=== PATIENT | male | born 1975 | race Caucasian/White ===

== ENCOUNTER 2021-01-26 14:33 | Emergency (ER) | payer OTHER, SELFPAY ==
[2021-01-26 14:35] VITALS: BP 149/55; PULSE 82; RESP 18; TEMP 36.2; O2SAT 97; BMI 29.0
--- NOTE | 2021-01-26 14:40 | ED_ITS ---
HPI - General Adult General Chief complaint: Upper Respiratory Symptoms Stated complaint: fever, flu like symptoms, kidneys hurt Time Seen by Provider: 01/26/21 14:36 Source: patient Mode of arrival: Ambulatory History of Present Illness HPI narrative: Patient is a 45-year-old male. Is unvaccinated against COVID-19 who is here for evaluation of approximately 24 hours of a fever, flu-like symptoms, flank pain. He states that he actually feels somewhat better today than what he did yesterday. He was waiting to get vaccinated against COVID-19 until all of the variants ?presented themselves ?. Has not taken anything for his symptoms. He states the only reason that he came in today was to get tested for COVID because he had to call off work this morning. Related Data Allergies Allergy/AdvReac Type Severity Reaction Status Date / Time No Known Drug Allergies Allergy Verified 01/26/21 14:51 Review of Systems Constitutional Comments: Fevers yesterday ENT Ears, Nose, Mouth, and Throat: Reports system reviewed and no additional complaints, except as documented Cardiovascular Cardiovascular: Reports system reviewed and no additional complaints, except as documented Respiratory Respiratory: Reports system reviewed and no additional complaints, except as documented Gastrointestinal Gastrointestinal: Denies nausea and Denies vomiting Musculoskeletal Musculoskeletal: Reports myalgias Integumentary/Breasts Skin/Breast: Reports system reviewed and no additional complaints, except as documented Hematologic/Lymphatic On Anticoagulants: No Patient History Medical History Patient denies medical problems Social History Smoking Status: Current every day smoker Exam Initial Vital Signs Initial Vital Signs: Vital Signs Temperature 97.2 F L 01/26/21 14:35 Pulse Rate 82 01/26/21 14:35 Respiratory Rate 18 01/26/21 14:35 Blood Pressure 149/55 H 01/26/21 14:35 Pulse Oximetry 97 01/26/21 14:35 HENMT Head: normal to inspection and normocephalic Resp Effort & Inspection: normal respiratory effort Auscultation: clear to auscultation bilaterally Cardio Rate: regular rate Skin General: no rashes or lesions noted Neuro General: patient alert, patient awake and moves all extremities Extrem General: normal to inspection and capillary refill normal Psych Appearance: grossly normal Course Orders Ordered: ED Orders 01/26/21 14:47 COVID19 -Nasal swab/Pre-Proc Stat Vital Signs Vital signs: Vital Signs - 8 hr 01/26/21 14:35 Temperature 97.2 F L Pulse Rate 82 Respiratory Rate 18 Blood Pressure 149/55 H Pulse Oximetry 97 Medical Decision Making Lab Data Labs: Lab Results 01/26/21 Range/Units 14:47 SARS-CoV-2 (PCR) Positive H (Negative) MDM Narrative Medical decision making narrative: Patient is positive for COVID-19. His vital signs unremarkable. His exam is unremarkable. He is on immunized against COVID-19. I did discuss the findings with him. We did discuss current CDC guidelines with regard to quarantine. He was given return precautions and fol low-up instructions. He expressed understanding agreement. Discharge Plan Departure Patient Disposition: Home Clinical Impression: COVID-19 Instructions: DI for COVID-19 (Suspected or Confirmed ), Can COVID-19 be prevented? Activity Restrictions/Additional Instructions: Your positive for COVID-19. Your now to quarantine yourself for the next 10 days. Be fever free for 24 hours and have improving symptoms. Take Tylenol for any fevers or body aches. Return to the emergency department for any new or worsening symptoms. Stand Alone Forms: Work Release Note
[2021-01-26 15:39] LABS: COVID19 -Nasal RAPID POSITIVE (Negative)
== END 2021-01-26 15:25 | disposition home or self-care (01) ==
PROVIDERS: Emergency Provider Emergency Medicine
DX: U07.1 COVID-19 (principal)
CPT/HCPCS: 87635; 99281; 99282; C9803

== ENCOUNTER 2021-03-13 15:33 | Emergency (ER) | payer OTHER, SELFPAY ==
[2021-03-13 15:39] VITALS: BP 144/78; PULSE 72; RESP 18; TEMP 36.9; O2SAT 99; BMI 29.7
[2021-03-13 16:12] LABS: COVID19 -Nasal RAPID Negative (Negative)
--- NOTE | 2021-03-13 16:19 | DI.RAD.S_ITS ---
PROCEDURE: XR CHEST 1V INDICATIONS: vomiting with chest pain TECHNIQUE: One view of the chest was acquired. COMPARISON: None. FINDINGS: Surgical changes and devices: None. Lungs and pleura: An incomplete inspiratory result is noted, causing a crowded appearance to the lung markings. No focal infiltrates are seen. No pneumothorax or significant pleural effusions are seen. Mediastinum: Mediastinal contours appear normal. Heart size is normal. Bones and chest wall: No suspicious bony lesions. Overlying soft tissues appear unremarkable. IMPRESSION: Limited portable chest examination, without a significant cardiopulmonary abnormality identified. Dictated by: Ti Mosley M.D. on 03/13/2021 at 15:37 Approved by: Ti Mosley M.D. on 03/13/2021 at 15:37
--- NOTE | 2021-03-13 16:19 | ED.NAVMDI ---
HPI - Nausea/Vomiting/Diarrhea General Chief complaint: Nausea/Vomiting/Diarrhea Stated complaint: vomiting since 033, chest feels burned Time Seen by Provider: 03/13/21 16:14 Source: patient Mode of arrival: Ambulatory Limitations: no limitations History of Present Illness HPI Narrative: Patient is a 45-year-old male who is here for evaluation of burning in his chest and upper abdomen. Last evening he started having multiple episodes of vomiting. Continued all night until this morning. He did take some antacids earlier today which helped him somewhat but the symptoms have continued. He is still somewhat nauseous but has not vomited since this morning. No diarrhea. No fevers. No recent travel. No recent antibiotics. No problems breathing. Related Data Previous Rx's Medication Instructions Recorded ondansetron 4 mg disintegrating 4 mg PO Q6H PRN #14 tab 03/13/21 tablet Allergies Allergy/AdvReac Type Severity Reaction Status Date / Time No Known Drug Allergies Allergy Verified 01/26/21 14:51 Review of Systems Constitutional Constitutional: Denies fever(s) Cardiovascular Cardiovascular: Reports as per HPI and Reports system reviewed and no additional complaints, except as documented Respiratory Respiratory: Reports as per HPI and Reports system reviewed and no additional complaints, except as documented Gastrointestinal Gastrointestinal: Reports as per HPI and Reports system reviewed and no additional complaints, except as documented Genitourinary Genitourinary: Reports system reviewed and no additional complaints, except as documented and Reports as per HPI Integumentary/Breasts Skin/Breast: Reports system reviewed and no additional complaints, except as documented Neurologic Neurologic: Reports system reviewed and no additional complaints, except as documented Hematologic/Lymphatic On Anticoagulants: No Patient History Medical History Patient denies medical problems Social History Smoking Status: Current every day smoker Smoking Status: Current every day smoker tobacco type: cigarettes and vaping alcohol intake frequency: holidays/special occasions only Substance Use Type: marijuana Exam Initial Vital Signs Initial Vital Signs: Vital Signs Temperature 98.4 F 03/13/21 15:39 Pulse Rate 72 03/13/21 15:39 Respiratory Rate 18 03/13/21 15:39 Blood Pressure 144/78 H 03/13/21 15:39 Pulse Oximetry 99 03/13/21 15:39 Const General: cooperative, healthy appearing, comfortable and well developed [facility] Head: normal to inspection and normocephalic Chest Chest: normal inspection of the chest Resp Effort & Inspection: normal respiratory effort Auscultation: clear to auscultation bilaterally Cardio Rate: regular rate Rhythm: regular rhythm GI Inspection: non-distended Palpation: soft, No firm and No tender Back/Spine/Pelvis Back: normal to inspection Skin Lesions: no lesions Rashes: no rashes Neuro General: patient alert, patient awake, patient oriented x3 and moves all extremities Extrem General: normal to inspection and capillary refill normal Psych Appearance: grossly normal and well kempt Course Orders Ordered: ED Orders 03/13/21 15:45 COVID19 -Nasal swab/Pre-Proc Stat 03/13/21 16:19 XR chest 1V Stat Discontinued Medications Al Hydrox/Mg Hydrox/Simethicone 20 ml/ Lidocaine HCl 15 ml 0 ml PO NOW ONE Stop: 03/13/21 16:20 Last Admin: 03/13/21 16:29 Dose: 35 ml Documented by: HELADIO Vital Signs Vital signs: Vital Signs - 8 hr 03/13/21 15:39 Temperature 98.4 F Pulse Rate 72 Respiratory Rate 18 Blood Pressure 144/78 H Pulse Oximetry 99 MDM - Nausea/Vomiting/Diarrhea Lab Data Labs: Lab Results 03/13/21 Range/Units 15:45 SARS-CoV-2 (PCR) Negative (Negative) Imaging Data Chest x-ray: Radiologist's Impression: [address] [address] XRay Report Signed Patient: Dayo Torres MR#: [id number] : 1975 Acct:[id number] Age/Sex: 45 / M Date of Service: 03/13/21 Loc: ED Accession Number: [id number] ?? Procedure: XR chest 1V Ordering Provider: Will Cota D.O. PROCEDURE:? XR CHEST 1V ? INDICATIONS:? vomiting with chest pain ? TECHNIQUE:? One view of the chest was acquired.? ? COMPARISON:? None. ? FINDINGS:? ? Surgical changes and devices:? None.? ? Lungs and pleura:? An incomplete inspiratory result is noted, causing a crowded appearance to the lung markings.? No focal infiltrates are seen.? No pneumothorax or significant pleural effusions are seen. ? ? Mediastinum:? Mediastinal contours appear normal.? Heart size is normal.? ? Bones and chest wall:? No suspicious bony lesions.? Overlying soft tissues appear unremarkable.? ? IMPRESSION:? ? Limited portable chest examination, without a significant cardiopulmonary abnormality identified.? ? ? Dictated by: Ti Mosley M.D. on 03/13/2021 at 15:37 ? ? Approved by: Ti Mosley M.D. on 03/13/2021 at 15:37? MDM Narrative Medical decision making narrative: Low suspicion for ACS. Chest x-ray does not show any signs of infiltrates. I suspect that his abdominal discomfort and chest discomfort is esophageal irritation/gastritis/ulceration from his vomiting. He did import some improvement after medications. I did discuss starting on H2 mariaelena. Patient states that he has ulcerations in the past. Plan will be is for him to start on anti-reflux medications for the next couple days. He was given return precautions and follow-up instructions. He expressed understanding and agreement. Discharge Plan Departure Patient Disposition: Home Clinical Impression: Vomiting, Gastroesophageal reflux disease Instructions: DI for Gastroesophageal Reflux Disease (GERD) Activity Restrictions/Additional Instructions: I do recommend that you start on a medicine called Pepcid/famotidine. You can purchase this [id number]. Please start taking it as directed. I do recommend that you take it on a daily basis for the next week and then you can do it as needed afterwards. Also recommend a bland diet. Contact your primary provider for follow-up. Return to the emergency department for new or worsening symptoms Prescriptions: New ondansetron 4 mg tablet,disintegrating 4 mg PO Q6H PRN (Reason: nausea and vomiting) Qty: 14 RF: 0
[2021-03-13] MEDS: MAG HYDROX/ALUMINUM/SIMETH SUS 20 ML, LIDOCAINE VISCOUS 2% 15 ML PO (16:29)
[2021-03-13 17:51] VITALS: BP 123/79; PULSE 54; RESP 17; O2SAT 99
== END 2021-03-13 17:52 | disposition home or self-care (01) ==
PROVIDERS: Emergency Provider Emergency Medicine
DX: K21.9 Gastro-esophageal reflux disease without esophagitis (principal); R11.10 Vomiting, unspecified; Z20.822 Contact with and (suspected) exposure to COVID-19
CPT/HCPCS: 71045; 87635; 99283; C9803

== ENCOUNTER 2021-03-16 13:09 | Emergency (ER) | payer SELFPAY ==
[2021-03-16 14:05] VITALS: BP 132/81; PULSE 54; RESP 18; TEMP 37.1; O2SAT 98; BMI 29.0
--- NOTE | 2021-03-16 15:40 | ED_ITS ---
HPI - Back Pain/Injury <Rojas Muniz PA-C - Last Filed: 03/16/21 18:26> General Chief Complaint: Back Pain/Injury Stated Complaint: Back Issues Time Seen by Provider: 03/16/21 14:59 Source: patient Limitations: no limitations History of Present Illness HPI Narrative: Patient is a 45-year-old male presenting to the emergency department today for an evaluation of back pain that began yesterday. Patient states he has a history of chronic back pain with multiple herniated discs. He states that he was holding his dog on a leash yesterday when the dog aggressively pulled on the leash, causing his body to jerk toward his right side and almost causing him to fall to the ground. He states that he is experienced back pain ever since that point. Of note, he states that he has experienced tingling sensations in his legs bilaterally since the injury but he also notes that he has experienced similar symptoms in the past with exacerbation. Patient denies fever, chills, chest pain, shortness of breath, cough, decreased sensation to light touch in the bilateral lower extremities, urinary incontinence, fecal incontinence. No other concerns voiced at this time. Related Data Previous Rx's Medication Instructions Recorded ondansetron 4 mg disintegrating 4 mg PO Q6H PRN #14 tab 03/13/21 tablet Allergies Allergy/AdvReac Type Severity Reaction Status Date / Time No Known Drug Allergies Allergy Verified 03/16/21 14:05 Review of Systems <Rojas Muniz PA-C - Last Filed: 03/16/21 18:26> Constitutional Constitutional: Denies chills, Denies fever(s), Denies frequent falls, Denies lethargy and Denies weakness ENT Ears, Nose, Mouth, and Throat: Denies dizziness Cardiovascular Cardiovascular: Denies chest pain, Denies irregular heart rhythm, Denies lightheadedness, Denies palpitations, Denies dyspnea, Denies dyspnea on exertion and Denies orthopnea Respiratory Respiratory: Denies cough, Denies dyspnea, Denies dyspnea on exertion and Denies wheezing Gastrointestinal Gastrointestinal: Denies abdominal pain, Denies change in bowel habits, Denies diarrhea, Denies nausea and Denies vomiting Genitourinary Genitourinary: Denies urinary incontinence Musculoskeletal Musculoskeletal: Denies deformity, Denies numbness, Reports tingling (Bilateral lower extremities) and Reports other (Low back pain) Neurologic Neurologic: Denies behavioral changes, Denies confusion, Denies dizziness, Denies frequent falls, Denies numbness, Reports tingling (Bilateral lower extremities) and Denies weakness Psychiatric Psychiatric: Denies behavioral changes and Denies confusion Endocrine Endocrine: Denies palpitations Allergic/Immunologic Allergic/Immunologic: Denies wheezing Patient History <Rojas Muniz PA-C - Last Filed: 03/16/21 18:26> Medical History Patient denies medical problems Social History Smoking Status: Current every day smoker Smoking Status: Current every day smoker tobacco type: cigarettes and vaping alcohol intake frequency: holidays/special occasions only Substance Use Type: marijuana Exam <Rojas Muniz PA-C - Last Filed: 03/16/21 18:26> Narrative Exam Narrative: GENERAL: 45 year old patient appears stated age. Well-developed patient, in no acutedistress. HEAD: Atraumatic. Normocephalic. EYES: Pupils equal round and reactive. Extraocular motions intact. No scleral icterus. No injection or drainage. ENT: Nose without bleeding, purulent drainage. Throat without erythema, tonsillar hypertrophy or exudate. Airway patent. NECK: Trachea midline. Non tender CARDIOVASCULAR: Regular rate and rhythm without murmurs, gallops, or rubs. RESPIRATORY: Clear to auscultation. Breath sounds equal bilaterally. No wheezes, rales, or rhonchi. GASTROINTESTINAL: Abdomen soft, non-tender, nondistended. EXTREMITIES: No edema or joint tenderness. BACK: Mild tenderness to palpation throughout back the area L4-L5. No deformity or crepitance. No flank tenderness. No significant swelling or ecchymosis appreciated. NEURO: AOx3. SKIN: No rash or erythema of visible areas Initial Vital Signs Initial Vital Signs: Vital Signs Temperature 98.7 F 03/16/21 14:05 Pulse Rate 54 L 03/16/21 14:05 Respiratory Rate 18 03/16/21 14:05 Blood Pressure 132/81 03/16/21 14:05 Pulse Oximetry 98 03/16/21 14:05 <Jodi Messer DO - Last Filed: 03/17/21 08:22> Initial Vital Signs Initial Vital Signs: Vital Signs Temperature 98.7 F 03/16/21 14:05 Pulse Rate 54 L 03/16/21 14:05 Respiratory Rate 18 03/16/21 14:05 Blood Pressure 132/81 03/16/21 14:05 Pulse Oximetry 98 03/16/21 14:05 Course <Rojas Muniz PA-C - Last Filed: 03/16/21 18:26> Course Course Narrative: Patient is a 45-year-old male presenting to the emergency department today for an evaluation of back pain that began yesterday. Orders Ordered: Discontinued Medications Ketorolac Tromethamine (Ketorolac 30 Mg/Ml Vial) 30 mg IM NOW ONE Stop: 03/16/21 15:40 Last Admin: 03/16/21 16:13 Dose: 30 mg Documented by: CRISTOFEROR Vital Signs Vital signs: Vital Signs - 8 hr 03/16/21 14:05 Temperature 98.7 F Pulse Rate 54 L Respiratory Rate 18 Blood Pressure 132/81 Pulse Oximetry 98 <Jodi Messer DO - Last Filed: 03/17/21 08:22> Orders Ordered: Discontinued Medications Ketorolac Tromethamine (Ketorolac 30 Mg/Ml Vial) 30 mg IM NOW ONE Stop: 03/16/21 15:40 Last Admin: 03/16/21 16:13 Dose: 30 mg Documented by: ATAANAYOR Vital Signs Vital signs: Vital Signs - 8 hr 03/16/21 14:05 Temperature 98.7 F Pulse Rate 54 L Respiratory Rate 18 Blood Pressure 132/81 Pulse Oximetry 98 MDM - Back Pain/Injury <Rojas Muniz PA-C - Last Filed: 03/16/21 18:26> MDM Narrative Medical decision making narrative: Patient is a 45-year-old male presenting to the emergency department today for an evaluation of back pain that began yesterday. To consider exacerbation of chronic back pain versus cauda equina syndrome. Overall history and physical examination are reassuring. Patient is free saddle anesthesia and does not report any urinary incontinence or fecal incontinence. Additionally, patient states that he is experienced similar symptoms in the past that have improved without clinical intervention. Discussed with the patient the likelihood that this is an exacerbation of his chronic back pain. At this time patient feels comfortable being discharged home. Strict return precautions discussed with patient prior to discharge. Discharge Plan Departure Patient Disposition: Home Clinical Impression: Lumbago Qualifiers: Chronicity: acute Back pain laterality: unspecified Sciatica presence: unspecified whether sciatica present Qualified Code(s): M54.50 - Low back pain, unspecified Instructions: DI for Low Back Pain Activity Restrictions/Additional Instructions: *You have been diagnosed with low back pain *What to do: *Please continue to take your regular medications as directed. [ ] New medication prescriptions sent to your pharmacy: [ ] [ ] New medication written as a paper prescription [X] No new medications given *Please follow up with your primary care provider in 2-3 days, call for an appointment. Let them know you were seen in the Emergency Department and that we ask that you be seen in follow up. We will electronically transmit a record of today's note if your PCP is in our system *If you do not have a primary care provider please contact the [facility] Resource line at [phone]. They will ask some questions about your medical history and help get you set up with a doctor in the community. *Return to Emergency Department if you should have any new, worsening or concerning symptoms, such as fever greater than 101 F, shaking chills, worsening pain, loss of bowel or bladder control, persistent vomiting, or other bothe rsome symptoms. Prescriptions: No Action ondansetron 4 mg tablet,disintegrating 4 mg PO Q6H PRN (Reason: nausea and vomiting) Qty: 14 RF: 0 Stand Alone Forms: Work Release Note <Jodi Messer, - Last Filed: 03/17/21 08:22> [facility] Attestation: I was immediately available in the department for consultation. Documentation has been reviewed. I agree with assessment and plan.
[2021-03-16] MEDS: KETOROLAC 30 MG/ML VIAL IM (16:13)
== END 2021-03-16 16:25 | disposition home or self-care (01) ==
PROVIDERS: Emergency Provider Physician Assistant
DX: M54.50 Low back pain, unspecified (principal)
CPT/HCPCS: 96372; 99283; J1885

== ENCOUNTER 2021-04-22 09:32 | Emergency (ER) | payer OTHER, SELFPAY ==
[2021-04-22 09:39] VITALS: BP 158/92; PULSE 55; RESP 17; TEMP 36.3; O2SAT 100
[2021-04-22 09:52] VITALS: BP 138/77
[2021-04-22 10:00] VITALS: PULSE 63; RESP 22; O2SAT 100
--- NOTE | 2021-04-22 10:06 | PC.NURSE ---
Moving all extremities equally well. denies bowel /bladder dysfunction. pain is worse w/ movement.
--- NOTE | 2021-04-22 10:12 | ED_ITS ---
HPI - Back Pain/Injury General Chief Complaint: Back Pain/Injury Stated Complaint: Right back/head,neck pain Time Seen by Provider: 04/22/21 09:58 Source: patient Mode of arrival: Ambulatory History of Present Illness HPI Narrative: Patient is a 45-year-old male who is here for evaluation of right upper back discomfort that is radiating to shoulder and his right neck in his right ear and to his right chest. Is been going on for the past couple days. No specific incident that caused the symptoms. He has had cervical radiculopathy issues in the past. Has not tried anything for the symptoms prior to arrival. It is worse with palpation and movement Related Data Previous Rx's Medication Instructions Recorded ondansetron 4 mg disintegrating 4 mg PO Q6H PRN #14 tab 03/13/21 tablet cyclobenzaprine 10 mg tablet 10 mg PO TID PRN #14 tab 04/22/21 Allergies Allergy/AdvReac Type Severity Reaction Status Date / Time No Known Drug Allergies Allergy Verified 04/22/21 09:43 Review of Systems ENT Ears, Nose, Mouth, and Throat: Reports system reviewed and no additional complaints, except as documented and Reports as per HPI Cardiovascular Cardiovascular: Reports as per HPI and Reports system reviewed and no additional complaints, except as documented Respiratory Respiratory: Reports as per HPI and Reports system reviewed and no additional complaints, except as documented Gastrointestinal Gastrointestinal: Reports system reviewed and no additional complaints, except as documented Musculoskeletal Musculoskeletal: Reports system reviewed and no additional complaints, except as documented and Reports as per HPI Integumentary/Breasts Skin/Breast: Reports system reviewed and no additional complaints, except as documented Neurologic Neurologic: Reports system reviewed and no additional complaints, except as documented Hematologic/Lymphatic On Anticoagulants: No Patient History Medical History Patient denies medical problems Social History Smoking Status: Current every day smoker Smoking Status: Current every day smoker tobacco type: cigarettes and vaping alcohol intake frequency: holidays/special occasions only Substance Use Type: marijuana Exam Initial Vital Signs Initial Vital Signs: Vital Signs Temperature 97.3 F L 04/22/21 09:39 Pulse Rate 55 L 04/22/21 09:39 Respiratory Rate 17 04/22/21 09:39 Blood Pressure 158/92 H 04/22/21 09:39 Pulse Oximetry 100 04/22/21 09:39 Const General: cooperative, comfortable, well developed and well groomed Limitations: mental status not altered HENCA Head: normal to inspection and normocephalic Resp Effort & Inspection: normal respiratory effort Auscultation: clear to auscultation bilaterally Cardio Rate: regular rate Rhythm: regular rhythm Back/Spine/Pelvis Cervical Spine: cervical muscular tenderness (Right-sided paraspinal/trapezius muscle) and No cervical spinal tenderness Thoracic/Lumbar Spine: No paraspinal tenderness, No thoracic spinal tenderness and No lumbar spinal tenderness Skin General: no rashes or lesions noted Neuro General: patient alert, patient awake, patient oriented x3 and moves all extremities Extrem General: capillary refill normal Other: Patient does have tenderness over the right trapezius muscle with fullness in the right shoulder associated with the muscle. Psych Appearance: grossly normal and well kempt Course Orders Ordered: ED Orders 04/22/21 09:46 EKG-12 Lead Stat Vital Signs Vital signs: Vital Signs - 8 hr 04/22/21 09:39 Temperature 97.3 F L Pulse Rate 55 L Respiratory Rate 17 Blood Pressure 158/92 H Pulse Oximetry 100 MDM - Back Pain/Injury ECG Data Attestation: I personally reviewed and interpreted this ECG as follows: Interpretation: Sinus bradycardia Ventricular rate of 47 Normal axis Normal QRS Normal QTC Sinus arrhythmia No ST T wave changes [facility] Narrative Medical decision making narrative: Patient does have fullness over the right trapezius muscle. His EKG is unremarkable. I do suspect this is musculoskeletal in origin and not cardiac. No indication for radiologic studies. I did discuss this with the patient. We did discuss conservative measures he can tried home. He is given return precautions. He expressed understanding and agreement. Discharge Plan Departure Patient Disposition: Home Clinical Impression: Strain of cervical portion of right trapezius muscle Instructions: DI for Muscle Strain Activity Restrictions/Additional Instructions: I recommend conservative measures such as heat and ice and massage. I also recommend anti-inflammatories such as Motrin or Naprosyn. You can also take Tylenol. Contact your primary doctor for a follow-up. Return to the emergency department for any new or worsening symptoms Prescriptions: New cyclobenzaprine 10 mg tablet 10 mg PO TID PRN (Reason: muscle spasm) Qty: 14 0RF No Action ondansetron 4 mg tablet,disintegrating 4 mg PO Q6H PRN (Reason: nausea and vomiting) Qty: 14 0RF
== END 2021-04-22 10:25 | disposition home or self-care (01) ==
PROVIDERS: Emergency Provider Emergency Medicine
DX: S16.1XXA Strain of muscle, fascia and tendon at neck level, initial encounter (principal); F17.210 Nicotine dependence, cigarettes, uncomplicated; F17.290 Nicotine dependence, other tobacco product, uncomplicated; X58.XXXA Exposure to other specified factors, initial encounter
CPT/HCPCS: 93005; 93010; 99282; 99283

== ENCOUNTER 2021-08-02 17:30 | Emergency (ER) | payer OTHER, SELFPAY ==
[2021-08-02 17:40] VITALS: BP 147/92; PULSE 80; RESP 18; TEMP 36.6; O2SAT 96; BMI 33.0
--- NOTE | 2021-08-02 17:44 | DI.RAD.S_ITS ---
PROCEDURE: XR FOOT RT MIN 3V INDICATIONS: felt a pop painful TECHNIQUE: 3 views of the foot were acquired. COMPARISON: None. FINDINGS: Bones: No acute fractures or dislocations. Corticated fragment adjacent to dorsal aspect of 1st metatarsal head is seen suggestive of old avulsion injury. No suspicious bony lesions. Soft tissues: No tibiotalar joint effusion. Achilles tendon appears normal. IMPRESSION: No gross acute right foot fracture or dislocation. Possible old avulsion injury involving dorsal aspect of 1st metatarsal head. Dictated by: Lex Rush M.D. on 08/02/2021 at 17:56 Approved by: Lex Rush M.D. on 08/02/2021 at 17:57
--- NOTE | 2021-08-02 18:33 | ED_ITS ---
HPI - Extremity Injury (Lower) <FRANCES Rosas - Last Filed: 08/02/21 20:31> General Chief Complaint: Extremity Injury, Lower Stated Complaint: RIGHT FOOT POP HURTS TO PUT WEIGHT ON IT Time Seen by Provider: 08/02/21 18:33 Source: patient Mode of arrival: Ambulatory History of Present Illness HPI Narrative: 46-year-old male presents to the emergency department complaining right dorsum foot pain which started today when he was moving a [place] onions, he states that all of a sudden he felt a pop in the top of his foot, warmth, and sharp pain. He states he is able to bear weight on it although it painful. He denies any history of diabetes, any open wound, he denies any traumatic impact. Range of motion intact, flexion-extension inversion and eversion. Patient denies any sensation changes in his foot. Patient took ibuprofen earlier today states that this was helpful although it is so painful when he bears weight. Patient is wearing slippers at this time. Related Data Previous Rx's Medication Instructions Recorded ondansetron 4 mg disintegrating 4 mg PO Q6H PRN #14 tab 03/13/21 tablet cyclobenzaprine 10 mg tablet 10 mg PO TID PRN #14 tab 04/22/21 acetaminophen 650 mg 650 mg PO Q8H PRN #30 tab 08/02/21 tablet,extended release (Tylenol Arthritis Pain) diclofenac sodium 1 % topical gel 4 g TOPICAL QID PRN #100 g 08/02/21 (Voltaren Arthritis Pain) lidocaine 5 % topical patch 1 patch TOPICAL DAILY PRN #15 ea 08/02/21 (Lidoderm) Allergies Allergy/AdvReac Type Severity Reaction Status Date / Time No Known Drug Allergies Allergy Verified 04/22/21 09:43 Review of Systems <FRANCES Rosas - Last Filed: 08/02/21 20:31> Review of Systems Narrative: General: denies fever, chills, malaise, sweats, fatigue Head/Neck: denies headache, neck pain, dizziness Eyes: denies visual changes, eye pain Cardio: denies chest pain, palpitations, edema Respiratory: denies dyspnea, cough, orthopnea GI: denies abdominal pain, nausea, vomiting, or diarrhea : denies dysuria, hematuria, urinary retention, frequency or incontinence MSK: Complains of right dorsum mid foot pain Skin: denies rash, itching, skin lesions or other Neuro: denies numbness, tingling Patient History <FRANCES Rosas - Last Filed: 08/02/21 20:31> Medical History Patient denies medical problems Social History Smoking Status: Current every day smoker Smoking Status: Current every day smoker tobacco type: cigarettes and vaping alcohol intake frequency: holidays/special occasions only Substance Use Type: marijuana Exam <FRANCES Rosas - Last Filed: 08/02/21 20:31> Narrative Exam Narrative: Independently reviewed vitals signs and nursing notes. General: cooperative, comfortable, in no acute distress, well developed and well groomed Head: atraumatic, symmetrical facial expressions Neck: supple, atraumatic, without lymphadenopathy. Eyes: pupils equal round and reactive, EOMI, conjunctiva normal Nose: nares patent, no rhinorrhea Mouth/Throat: uvula midline, moist mucus membranes MSK: moves all extremities, ambulatory w/steady gait in walking to neurovascularly intact, no weakness, mild edema/ecchymosis on the dorsum of his right midfoot, no erythema, without open wound, no sensation changes, PT and DP pulses are 2+, no proximal 1st or 5th metatarsal pain, no tenderness over medial and lateral malleoli Skin: brisk capillary refill, no rash, no erythema Neuro: normal speech and cognition, A&O x3, normal tone Psych: mental status is grossly normal, congruent mood, normal affect, pleasant and cooperative Initial Vital Signs Initial Vital Signs: Vital Signs Temperature 97.8 F 08/02/21 17:40 Pulse Rate 80 08/02/21 17:40 Respiratory Rate 18 08/02/21 17:40 Blood Pressure 147/92 H 08/02/21 17:40 Pulse Oximetry 96 08/02/21 17:40 Procedures <FRANCES Rosas - Last Filed: 08/02/21 20:31> Orthopedic Splinting/Casting Injury #1: Lower Extremity Immobilizer: post-op shoe Post splinting neuro exam: intact and no change Post splinting vascular exam: no change Placed by: Provider Course <FRANCES Rosas - Last Filed: 08/02/21 20:31> Orders Ordered: ED Orders 08/02/21 17:44 XR foot RT min 3V Stat Vital Signs Vital signs: Vital Signs - 8 hr 08/02/21 17:40 Temperature 97.8 F Pulse Rate 80 Respiratory Rate 18 Blood Pressure 147/92 H Pulse Oximetry 96 MDM - Extremity Injury (Lower) <FRANCES Rosas - Last Filed: 08/02/21 20:31> Imaging Data Extremity x-ray #1: Radiologist's Impression: PROCEDURE:? XR FOOT RT MIN 3V ? INDICATIONS:? felt a pop painful ? TECHNIQUE:? 3 views of the foot were acquired.? ? COMPARISON:? None. ? FINDINGS:? ? Bones:? No acute fractures or dislocations.? Corticated fragment adjacent to dorsal aspect of 1st metatarsal head is seen suggestive of old avulsion injury.? No suspicious bony lesions.? ? Soft tissues:? No tibiotalar joint effusion.? Achilles tendon appears normal.? ? ? IMPRESSION:? No gross acute right foot fracture or dislocation. Possible old avulsion injury involving dorsal aspect of 1st metatarsal head.? ? Dictated by: Lex Rush M.D. on 08/02/2021 at 17:56 ? ? Approved by: Lex Rush M.D. on 08/02/2021 at 17:57 ? [facility] Narrative Medical decision making narrative: 46-year-old male presents to the emergency department with right dorsum midfoot pain which occurred when he was moving a heavy [place] onions into another location, he states he felt a pop on the dorsum of his foot and is painful at that time. Patient denies wanting range of motion changes or limitations, he is able to dorsiflex and extend without deficit, invert and janet his foot without excess pain. He has tenderness to palpation over the dorsum of his midfoot, with mild ecchymosis without any crepitus, axilla erythema. Cap refill less than 2 seconds, PT and DP pulses are 2+. Patient was referred to Podiatry for follow-up if this is not healing as expected. He was given a work note. En couraged ice, rest, he was fitted in a postop shoe, states is feels more comfortable. Patient is appropriate and amenable to discharge home. Vital signs are stable on repeat examination is unremarkable. Patient has been informed of results. Patient has been given strict return to ER precautions for any new or worsening symptoms. Patient understands to follow up closely with outpatient providers as instructed. Patient understands plan and agrees to discharge home. All questions and concerns answered at this time. Discharge Plan Departure Patient Disposition: Home Clinical Impression: Foot sprain Qualifiers: Encounter type: initial encounter Laterality: right Qualified Code(s): S93.601A - Unspecified sprain of right foot, initial encounter Instructions: Ankle Sprain Activity Restrictions/Additional Instructions: *You have been diagnosed with a foot sprain. This is most likely a sprain since there is no acute fracture. These may range from mild to severe depending on how long it takes for to heal. Please elevated as much as possible, try and stay off of it, ice it frequently. Please use this walking shoe, wear a sock with it. He can use a lidocaine patch to help with the pain or Voltaren gel in addition to ibuprofen and Tylenol. If your taking ibuprofen around the clock, please take food and water with it to help prevent your stomach. Thank you for trusting us with your care, very sorry for help busy it is today. If this is not getting any better, please follow-up with Podiatry. *What to do: *Please continue to take your regular medications as directed. [ x] New medication prescriptions sent to your pharmacy: [[facility] ] [ ] New medication written as a paper prescription [ ] No new medications given *Please follow up with your primary care provider in 2-3 days, call for an appointment. Let them know you were seen in the Emergency Department and that we asked that you be seen for follow-up. We will electronically transmit a record of today's note if your PCP is in our system *If you do not have a primary care provider please contact [phone] to establish care with one of the [facility] primary care providers. *Return to Emergency Department if you should have any new, worsening or concerning symptoms, such as [fever greater than 101F, chills, worsening pain, persistent vomiting or other bothersome symptoms] Prescriptions: New lidocaine [Lidoderm] 5 % adhesive patch,medicated 1 patch topical DAILY PRN (Reason: pain) Qty: 15 0RF Rx Instructions: leave on most painful area for up to 12 hrs diclofenac sodium [Voltaren Arthritis Pain] 1 % gel 4 g topical QID PRN (Reason: pain, inflammation) Qty: 100 0RF Rx Instructions: apply to single knee, ankle, foot; for foot includes sole/toes/top of foot acetaminophen [Tylenol Arthritis Pain] 650 mg tablet extended release 650 mg PO Q8H PRN (Reason: pain) Qty: 30 0RF No Action ondansetron 4 mg tablet,disintegrating 4 mg PO Q6H PRN (Reason: nausea and vomiting) Qty: 14 0RF cyclobenzaprine 10 mg tablet 10 mg PO TID PRN (Reason: muscle spasm) Qty: 14 0RF Referrals: Purnima Person DPM [Physician] - 7-10 days Stand Alone Forms: Work Release Note
--- NOTE | 2021-08-02 20:49 | PC.NURSE ---
Assessment done by provider Crew and relayed to me. DC'd without nursing assessment except what was done in triage. She reports swelling to the top of right foot and pain with ambulation.
--- NOTE | 2021-08-02 20:53 | PC.NURSE ---
placed by Provider Crew
== END 2021-08-02 20:15 | disposition home or self-care (01) ==
PROVIDERS: Emergency Provider Nurse Practitioner Critical Care Medicine
DX: S93.601A Unspecified sprain of right foot, initial encounter (principal); X50.0XXA Overexertion from strenuous movement or load, initial encounter
CPT/HCPCS: 29550; 73630; 99281; 99283

== ENCOUNTER 2021-09-19 09:53 | Emergency (ER) | payer OTHER, SELFPAY ==
[2021-09-19 10:03] VITALS: BP 145/78; PULSE 58; RESP 18; TEMP 37.1; O2SAT 100; BMI 33.0
--- NOTE | 2021-09-19 12:51 | ED.SKABFB ---
HPI - Skin/Abscess/Foreign Bdy <Perico Acuna PA-C - Last Filed: 09/19/21 13:01> General Chief complaint: Skin/Abscess/Foreign Body Stated complaint: Thinks ruptured hemorrhoid Time Seen by Provider: 09/19/21 12:42 Source: patient Mode of arrival: Ambulatory Limitations: no limitations History of Present Illness HPI narrative: Patient is a 46-year-old male presents to the ED complaining of pain per rectum. He has a history of hemorrhoids has had frequent issues with having pain and swelling and bleeding associated with. He states that today he had a bowel movement had a large amount of blood that seem to be more than normal and he is having a lot more pain around the rectum. He was concerned and came in for evaluation. He admits to poor diet habits not drinking enough fluids and does not get enough fruits and vegetables. He states he has been having issues with hemorrhoids for the past 20 years. He does states that he does have bowel movements daily sometimes 3 times a day he states that the last couple of days have been diarrhea and consistency. He does not suffer from issues with chronic constipation. No reported fever no reported nausea or vomiting. No reported anal penetration Related Data Previous Rx's Medication Instructions Recorded ondansetron 4 mg disintegrating 4 mg PO Q6H PRN #14 tab 03/13/21 tablet cyclobenzaprine 10 mg tablet 10 mg PO TID PRN #14 tab 04/22/21 acetaminophen 650 mg 650 mg PO Q8H PRN #30 tab 08/02/21 tablet,extended release (Tylenol Arthritis Pain) diclofenac sodium 1 % topical gel 4 g TOPICAL QID PRN #100 g 08/02/21 (Voltaren Arthritis Pain) lidocaine 5 % topical patch 1 patch TOPICAL DAILY PRN #15 ea 08/02/21 (Lidoderm) Allergies Allergy/AdvReac Type Severity Reaction Status Date / Time No Known Drug Allergies Allergy Verified 04/22/21 09:43 Review of Systems <Perico Acuna PA-C - Last Filed: 09/19/21 13:01> Review of Systems ROS Unobtainable: All systems reviewed & are unremarkable except as noted in HPI and below Constitutional Constitutional: Denies chills, Denies fatigue, Denies fever(s), Denies frequent falls, Denies lethargy and Denies weakness Eyes Eyes: Denies change in vision, Denies eye discharge, Denies irritation and Denies loss of vision ENT Ears, Nose, Mouth, and Throat: Denies change in voice, Denies dizziness, Denies neck pain, Denies sore throat and Denies throat swelling Cardiovascular Cardiovascular: Denies chest pain, Denies irregular heart rhythm, Denies lightheadedness, Denies palpitations, Denies dyspnea, Denies dyspnea on exertion and Denies orthopnea Respiratory Respiratory: Denies cough, Denies dyspnea, Denies dyspnea on exertion and Denies wheezing Gastrointestinal Gastrointestinal: Denies abdominal pain, Denies change in bowel habits, Denies diarrhea, Denies nausea and Denies vomiting Genitourinary Genitourinary: Reports as per HPI, Denies hematuria, Denies flank pain, Denies urinary incontinence and Denies urinary urgency Musculoskeletal Musculoskeletal: Denies back pain, Denies muscle weakness, Denies neck pain, Denies numbness and Denies tingling Integumentary/Breasts Skin/Breast: Denies pruritus, Denies erythema, Denies rash and Denies wounds Neurologic Neurologic: Denies behavioral changes, Denies confusion, Denies dizziness, Denies frequent falls, Denies loss of vision, Denies numbness, Denies tingling and Denies weakness Psychiatric Psychiatric: Denies anxiety, Denies behavioral changes, Denies confusion, Denies depression, Denies homicidal ideation and Denies suicidal ideation Endocrine Endocrine: Denies fatigue, Denies flushing and Denies palpitations Hematologic/Lymphatic Hematologic/Lymphatic: Denies easy bruising Allergic/Immunologic Allergic/Immunologic: Denies urticaria, Denies throat swelling and Denies wheezing Patient History <Perico Acuna PA-C - Last Filed: 09/19/21 13:01> Medical History Patient denies medical problems Social History Smoking Status: Current every day smoker Smoking Status: Current every day smoker tobacco type: cigarettes and vaping alcohol intake frequency: holidays/special occasions only Substance Use Type: marijuana Exam <Perico Acuna PA-C - Last Filed: 09/19/21 13:01> Initial Vital Signs Initial Vital Signs: Vital Signs Temperature 98.7 F 09/19/21 10:03 Pulse Rate 58 L 09/19/21 10:03 Respiratory Rate 18 09/19/21 10:03 Blood Pressure 145/78 H 09/19/21 10:03 Pulse Oximetry 100 09/19/21 10:03 Const General: cooperative, healthy appearing, comfortable and well developed Nutritional Appearance: average body habitus GI Inspection: normal to inspection Palpation: soft and no hepatosplenomegaly Rectal Exam: visual inspection normal, normal sphincter tone and hemorrhoids <Jodi Messer DO - Last Filed: 09/19/21 22:22> Initial Vital Signs Initial Vital Signs: Vital Signs Temperature 98.7 F 09/19/21 10:03 Pulse Rate 58 L 09/19/21 10:03 Respiratory Rate 18 09/19/21 10:03 Blood Pressure 145/78 H 09/19/21 10:03 Pulse Oximetry 100 09/19/21 10:03 Course <NIKOLAY Champion Last Filed: 09/19/21 13:01> Vital Signs Vital signs: Vital Signs - 8 hr 09/19/21 10:03 Temperature 98.7 F Pulse Rate 58 L Respiratory Rate 18 Blood Pressure 145/78 H Pulse Oximetry 100 <DO Nestor Plummer Last Filed: 09/19/21 22:22> Vital Signs Vital signs: Vital Signs - 8 hr 09/19/21 10:03 Temperature 98.7 F Pulse Rate 58 L Respiratory Rate 18 Blood Pressure 145/78 H Pulse Oximetry 100 MDM - Skin/Abscess/Foreign Bdy <NIKOLAY Champion Last Filed: 09/19/21 13:01> Differential Diagnosis Differential diagnosis: Likely other [facility] [place] Narrative Medical decision making narrative: Patient was evaluated today for rectal pain. Based on his exam I saw no evidence of any thrombosed hemorrhoid or any abnormalities visualized externally or internally. Did not see any evidence of any blood and patient's vitals were stable. Based on the assessment and the story it is likely that he can treat this outpatient lead. I spoke about increasing his fiber and taking stool softeners and Sitz baths for discomfort as well as [id number] options. He was agreeable and patient was discharged home. Discharge Plan Departure Patient Disposition: Home Clinical Impression: Pain of perianal area Instructions: DI for Rectal Bleeding Activity Restrictions/Additional Instructions: Today you were seen for pain per rectum. As we discussed I would recommend he take a fiber supplement Metamucil [id number] as directed this will help bulk up her bowel movements. I also would recommend a stool softener namely Colace 100 mg twice daily you can buy this [id number]. I would also recommend Sitz baths for any ongoing discomfort and you can also purchase some preparation H OTC as directed for pain and burning. If her symptoms worsen or bleeding continues you can return to the ED for re-evaluation or you can follow-up with your PCP. Thank you for the opportunity to care for you today. Prescriptions: No Action ondansetron 4 mg tablet,disintegrating 4 mg PO Q6H PRN (Reason: nausea and vomiting) Qty: 14 0RF cyclobenzaprine 10 mg tablet 10 mg PO TID PRN (Reason: muscle spasm) Qty: 14 0RF lidocaine [Lidoderm] 5 % adhesive patch,medicated 1 patch topical DAILY PRN (Reason: pain) Qty: 15 0RF Rx Instructions: leave on most painful area for up to 12 hrs diclofenac sodium [Voltaren Arthritis Pain] 1 % gel 4 g topical QID PRN (Reason: pain, inflammation) Qty: 100 0RF Rx Instructions: apply to single knee, ankle, foot; for foot includes sole/toes/top of foot acetaminophen [Tylenol Arthritis Pain] 650 mg tablet extended release 650 mg PO Q8H PRN (Reason: pain) Qty: 30 0RF Stand Alone Forms: Work Release Note <Jodi Messer, - Last Filed: 09/19/21 22:22> Cosign ED Attending Remyature Attestation: I was immediately available in the department for consultation. Documentation has been reviewed. I agree with assessment and plan.
== END 2021-09-19 13:09 | disposition home or self-care (01) ==
PROVIDERS: Emergency Provider Physician Assistant
DX: K62.89 Other specified diseases of anus and rectum (principal); K62.5 Hemorrhage of anus and rectum
CPT/HCPCS: 99281

== ENCOUNTER 2021-10-24 20:31 | Emergency (ER) | payer OTHER, SELFPAY ==
[2021-10-24 20:54] VITALS: BP 145/81; PULSE 66; RESP 16; TEMP 37.4; O2SAT 99; BMI 33.0
[2021-10-24 21:27] LABS: COVID19 -Nasal RAPID POSITIVE (Negative)
--- NOTE | 2021-10-24 22:11 | ED_ITS ---
HPI - General Adult General Chief complaint: Upper Respiratory Symptoms Stated complaint: states flu like symptoms Time Seen by Provider: 10/24/21 22:09 Source: patient Mode of arrival: Ambulatory History of Present Illness HPI narrative: 46-year-old male who is not vaccinated against COVID he states that he started to have upper respiratory symptoms several days ago however over the past 24 hours symptoms have worsened to include fevers. He states that it feels very similar to the last time that he had COVID. Related Data Previous Rx's Medication Instructions Recorded ondansetron 4 mg disintegrating 4 mg PO Q6H PRN nausea and 03/13/21 tablet vomiting #14 tabs cyclobenzaprine 10 mg tablet 10 mg PO TID PRN muscle spasm #14 04/22/21 tabs acetaminophen 650 mg 650 mg PO Q8H PRN pain #30 tabs 08/02/21 tablet,extended release (Tylenol Arthritis Pain) diclofenac sodium 1 % topical gel 4 g topical QID PRN pain, 08/02/21 (Voltaren Arthritis Pain) inflammation #100 grams lidocaine 5 % topical patch 1 patch topical DAILY PRN pain #15 08/02/21 (Lidoderm) ea Allergies Allergy/AdvReac Type Severity Reaction Status Date / Time No Known Drug Allergies Allergy Verified 04/22/21 09:43 Review of Systems Constitutional Constitutional: Reports body ache(s), Reports fatigue, Reports fever(s) and Reports lethargy Respiratory Respiratory: Reports cough Gastrointestinal Gastrointestinal: Reports as per HPI and Reports system reviewed and no additional complaints, except as documented Genitourinary Genitourinary: Reports system reviewed and no additional complaints, except as documented and Reports as per HPI Integumentary/Breasts Skin/Breast: Reports system reviewed and no additional complaints, except as documented Endocrine Endocrine: Reports fatigue Hematologic/Lymphatic On Anticoagulants: No Patient History Medical History Patient denies medical problems Social History Smoking Status: Current every day smoker Smoking Status: Current every day smoker tobacco type: cigarettes and vaping alcohol intake frequency: holidays/special occasions only Substance Use Type: marijuana Exam Initial Vital Signs Initial Vital Signs: Vital Signs Temperature 99.3 F 10/24/21 20:54 Pulse Rate 66 10/24/21 20:54 Respiratory Rate 16 10/24/21 20:54 Blood Pressure 145/81 H 10/24/21 20:54 Pulse Oximetry 99 10/24/21 20:54 Oxygen Delivery Method 10/24/21 20:54 Const General: cooperative and comfortable HENMT Head: normal to inspection and normocephalic Resp Effort & Inspection: normal respiratory effort Auscultation: clear to auscultation bilaterally Cardio Rate: regular rate Rhythm: regular rhythm Skin General: no rashes or lesions noted Neuro General: patient alert, patient awake and moves all extremities Extrem General: normal to inspection and capillary refill normal Course Orders Ordered: ED Orders 10/24/21 21:00 COVID19 -Nasal RAPID/Pre-Proc Stat Vital Signs Vital signs: Vital Signs - 8 hr 10/24/21 20:54 Temperature 99.3 F Pulse Rate 66 Respiratory Rate 16 Blood Pressure 145/81 H Pulse Oximetry 99 Oxygen Delivery Method Room Air Medical Decision Making Lab Data Labs: Lab Results 10/24/21 Range/Units 21:00 SARS-CoV-2 (PCR) Positive H (Negative) MDM Narrative Medical decision making narrative: Patient is COVID positive. This does explain the symptoms that he presents with today. Has clear lung exam. Not hypoxic. Not tachypneic. No indication for antibiotics. Feel that we can hold on a chest x-ray for now given his p resentation. He was given return precautions and follow-up instructions. He expressed understanding and agreement. Discharge Plan Departure Patient Disposition: Home Clinical Impression: COVID-19 Instructions: DI for COVID-19 (Suspected or Confirmed ) Activity Restrictions/Additional Instructions: Recommend that you take Tylenol for any fevers or body aches. Be sure to increase your fluid intake. Follow all CDC guidelines with regard to quarantine. Return to the emergency department for any new or worsening symptoms. Prescriptions: No Action ondansetron 4 mg tablet,disintegrating 4 mg PO Q6H PRN (Reason: nausea and vomiting) Qty: 14 0RF cyclobenzaprine 10 mg tablet 10 mg PO TID PRN (Reason: muscle spasm) Qty: 14 0RF lidocaine [Lidoderm] 5 % adhesive patch,medicated 1 patch topical DAILY PRN (Reason: pain) Qty: 15 0RF Rx Instructions: leave on most painful area for up to 12 hrs diclofenac sodium [Voltaren Arthritis Pain] 1 % gel 4 g topical QID PRN (Reason: pain, inflammation) Qty: 100 0RF Rx Instructions: apply to single knee, ankle, foot; for foot includes sole/toes/top of foot acetaminophen [Tylenol Arthritis Pain] 650 mg tablet extended release 650 mg PO Q8H PRN (Reason: pain) Qty: 30 0RF Stand Alone Forms: Work Release Note Visit Report Forms: Patient Portal/API
== END 2021-10-24 22:16 | disposition home or self-care (01) ==
PROVIDERS: Emergency Provider Emergency Medicine
DX: U07.1 COVID-19 (principal)
CPT/HCPCS: 87635; 99281; 99282; C9803

== ENCOUNTER 2021-10-31 05:48 | Emergency (ER) | payer OTHER, SELFPAY ==
[2021-10-31 05:53] VITALS: BP 119/69; PULSE 70; RESP 20; TEMP 36.5; O2SAT 97
--- NOTE | 2021-10-31 07:25 | DI.RAD.S_ITS ---
PROCEDURE: XR CHEST 1V INDICATIONS: covid pos A WEEK AGO, with sob and chest pain TECHNIQUE: One view of the chest was acquired. COMPARISON: [facility], CR, XR CHEST 1V, 03/13/2021, 16:23. FINDINGS: Surgical changes and devices: None. Lungs and pleura: Lungs are clear. No pleural effusions or pneumothorax. Mediastinum: Mediastinal contours appear normal. Heart size is normal. Bones and chest wall: No suspicious bony lesions. Overlying soft tissues appear unremarkable. IMPRESSION: No acute cardiopulmonary disease. Dictated by: Lynn Doyle M.D. on 10/31/2021 at 8:33 Approved by: Lynn Doyle M.D. on 10/31/2021 at 8:33
--- NOTE | 2021-10-31 07:25 | ED.GENADULT ---
HPI - General Adult General Chief complaint: Upper Respiratory Symptoms Stated complaint: SOB, MUSCLE PAIN Time Seen by Provider: 10/31/21 06:57 Source: patient Mode of arrival: Ambulatory Limitations: no limitations History of Present Illness HPI narrative: 46-year-old male who 1 week ago was seen here in this department by myself and diagnosed with COVID-19. Was discharged home. Since that time he stated that there was a short period of time where he was feeling better but then things seemed to be getting worse. He is having chills and body aches and cough and right-sided chest discomfort with coughing. Is also having fevers. Is also having right-sided back discomfort after a coughing episode this morning. Related Data Previous Rx's Medication Instructions Recorded ondansetron 4 mg disintegrating 4 mg PO Q6H PRN nausea and 03/13/21 tablet vomiting #14 tabs cyclobenzaprine 10 mg tablet 10 mg PO TID PRN muscle spasm #14 04/22/21 tabs acetaminophen 650 mg 650 mg PO Q8H PRN pain #30 tabs 08/02/21 tablet,extended release (Tylenol Arthritis Pain) diclofenac sodium 1 % topical gel 4 g topical QID PRN pain, 08/02/21 (Voltaren Arthritis Pain) inflammation #100 grams lidocaine 5 % topical patch 1 patch topical DAILY PRN pain #15 08/02/21 (Lidoderm) ea Allergies Allergy/AdvReac Type Severity Reaction Status Date / Time No Known Drug Allergies Allergy Verified 04/22/21 09:43 Review of Systems Constitutional Constitutional: Reports system reviewed and no additional complaints, except as documented Cardiovascular Cardiovascular: Reports system reviewed and no additional complaints, except as documented Respiratory Respiratory: Reports system reviewed and no additional complaints, except as documented Gastrointestinal Gastrointestinal: Reports system reviewed and no additional complaints, except as documented Musculoskeletal Musculoskeletal: Reports system reviewed and no additional complaints, except as documented Patient History Medical History Patient denies medical problems Social History Smoking Status: Current every day smoker Smoking Status: Current every day smoker tobacco type: cigarettes and vaping alcohol intake frequency: holidays/special occasions only Substance Use Type: marijuana Exam Initial Vital Signs Initial Vital Signs: Vital Signs Temperature 97.7 F 10/31/21 05:53 Pulse Rate 70 10/31/21 05:53 Respiratory Rate 20 10/31/21 05:53 Blood Pressure 119/69 10/31/21 05:53 Pulse Oximetry 97 10/31/21 05:53 Oxygen Delivery Method 10/31/21 05:53 Const General: cooperative, healthy appearing and comfortable HENMT Head: normal to inspection and normocephalic Resp Effort & Inspection: normal respiratory effort Auscultation: clear to auscultation bilaterally Cardio Rate: regular rate Rhythm: regular rhythm Skin General: no rashes or lesions noted Neuro General: patient alert, patient awake and moves all extremities Extrem General: normal to inspection and capillary refill normal Course Orders Ordered: ED Orders 10/31/21 07:25 XR chest 1V Stat Vital Signs Vital signs: Vital Signs - 8 hr 10/31/21 05:53 10/31/21 07:46 10/31/21 07:47 Temperature 97.7 F Pulse Rate 70 60 60 Respiratory Rate 20 Blood Pressure 119/69 Pulse Oximetry 97 98 96 Oxygen Delivery Method Room Air 10/31/21 07:47 Temperature Pulse Rate Respiratory Rate Blood Pressure 109/62 Pulse Oximetry Oxygen Delivery Method Medical Decision Making Imaging Data Chest x-ray: Radiologist's Impression: [address] [address] XRay Report Signed Patient: Dayo Torres MR#: [id number] : 1975 Acct:[id number] Age/Sex: 46 / M Date of Service: 10/31/21 Loc: ED Accession Number: [id number] ?? Procedure: XR chest 1V Ordering Provider: Will Cota D.O. PROCEDURE:? XR CHEST 1V ? INDICATIONS:? covid pos A WEEK AGO, with sob and chest pain ? TECHNIQUE:? One view of the chest was acquired.? ? [facility]. ? FINDINGS:? ? Surgical changes and devices:? None.? ? Lungs and pleura:? Lungs are clear.? No pleural effusions or pneumothorax.? ? Mediastinum:? Mediastinal contours appear normal.? Heart size is normal.? ? Bones and chest wall:? No suspicious bony lesions.? Overlying soft tissues appear unremarkable.? ? IMPRESSION:? No acute cardiopulmonary disease. ? ? Dictated by: Lynn Doyle M.D. on 10/31/2021 at 8:33 ? ? Approved by: Lynn Doyle M.D. on 10/31/2021 at 8:33?? MDM Narrative Medical decision making narrative: No respiratory distress, hypoxic, not tachypneic. Chest x-ray unremarkable. No indication for antibiotics. He has known COVID-19. We did discuss the importance of continuing to stay hydrated. He was given return precautions. He expressed understanding and agreement. Discharge Plan Departure Patient Disposition: Home Clinical Impression: COVID-19 Instructions: DI for COVID-19 (Suspected or Confirmed ) Activity Restrictions/Additional Instructions: Continue to follow while CDC guidelines with regard to COVID-19 and your symptoms. You should be fever free for 24 hours and the rest of your symptoms improving before you end your quarantine. Contact your primary provider for a follow-up. Prescriptions: No Action ondansetron 4 mg tablet,disintegrating 4 mg PO Q6H PRN (Reason: nausea and vomiting) Qty: 14 0RF cyclobenzaprine 10 mg tablet 10 mg PO TID PRN (Reason: muscle spasm) Qty: 14 0RF lidocaine [Lidoderm] 5 % adhesive patch,medicated 1 patch topical DAILY PRN (Reason: pain) Qty: 15 0RF Rx Instructions: leave on most painful area for up to 12 hrs diclofenac sodium [Voltaren Arthritis Pain] 1 % gel 4 g topical QID PRN (Reason: pain, inflammation) Qty: 100 0RF Rx Instructions: apply to single knee, ankle, foot; for foot includes sole/toes/top of foot acetaminophen [Tylenol Arthritis Pain] 650 mg tablet extended release 650 mg PO Q8H PRN (Reason: pain) Qty: 30 0RF Stand Alone Forms: Work Release Note
[2021-10-31 07:46] VITALS: PULSE 60; O2SAT 98
[2021-10-31 07:47] VITALS: BP 109/62; PULSE 60; O2SAT 96
[2021-10-31 08:00] VITALS: BP 126/66; PULSE 58; O2SAT 95
[2021-10-31 08:30] VITALS: PULSE 49; O2SAT 96
== END 2021-10-31 08:52 | disposition home or self-care (01) ==
PROVIDERS: Emergency Provider Emergency Medicine
DX: U07.1 COVID-19 (principal); R07.9 Chest pain, unspecified
CPT/HCPCS: 71045; 99281; 99283

== ENCOUNTER 2022-05-16 13:56 | Emergency (ER) | payer OTHER, SELFPAY ==
[2022-05-16 14:35] VITALS: BP 140/68; PULSE 57; RESP 14; TEMP 36.7; O2SAT 99; BMI 26.4
--- NOTE | 2022-05-16 16:18 | PC.NURSE ---
Pt states he was walking his dog when he was pulled on the leash which made him twist wrong and he thinks pulled a muscle in his back. Pt states that he already has buldging/slipped discs and this incident has exacerbated him pain. Ambulatory, able to sit and stand with pain. Denies bladder or bowel issues. Has radiation of pain into his R knee.
--- NOTE | 2022-05-16 16:58 | ED.BACK ---
HPI - Back Pain/Injury <NIKOLAY Goddard Last Filed: 05/16/22 18:35> General Chief Complaint: Back Pain/Injury Stated Complaint: lower back injury going to RT leg Time Seen by Provider: 05/16/22 14:17 Source: patient History of Present Illness HPI Narrative: Patient left without being seen Related Data Previous Rx's Medication Instructions Recorded ondansetron 4 mg disintegrating 4 mg PO Q6H PRN nausea and 03/13/21 tablet vomiting #14 tabs cyclobenzaprine 10 mg tablet 10 mg PO TID PRN muscle spasm #14 04/22/21 tabs acetaminophen 650 mg 650 mg PO Q8H PRN pain #30 tabs 08/02/21 tablet,extended release (Tylenol Arthritis Pain) diclofenac sodium 1 % topical gel 4 g topical QID PRN pain, 08/02/21 (Voltaren Arthritis Pain) inflammation #100 grams lidocaine 5 % topical patch 1 patch topical DAILY PRN pain #15 08/02/21 (Lidoderm) ea Allergies Allergy/AdvReac Type Severity Reaction Status Date / Time No Known Drug Allergies Allergy Verified 05/16/22 14:38 Patient History <NIKOLAY Goddard Last Filed: 05/16/22 18:35> Medical History Patient denies medical problems Social History Smoking Status: Current every day smoker Smoking Status: Current every day smoker tobacco type: cigarettes and vaping alcohol intake frequency: holidays/special occasions only Substance Use Type: marijuana Exam <NIKOLAY Goddard Last Filed: 05/16/22 18:35> Initial Vital Signs Initial Vital Signs: Vital Signs Temperature 98.1 F 05/16/22 14:35 Pulse Rate 57 L 05/16/22 14:35 Respiratory Rate 14 05/16/22 14:35 Blood Pressure 140/68 05/16/22 14:35 Pulse Oximetry 99 05/16/22 14:35 Oxygen Delivery Method 05/16/22 14:35 <Jodi Messer DO - Last Filed: 05/17/22 17:50> Initial Vital Signs Initial Vital Signs: Vital Signs Temperature 98.1 F 05/16/22 14:35 Pulse Rate 57 L 05/16/22 14:35 Respiratory Rate 14 05/16/22 14:35 Blood Pressure 140/68 05/16/22 14:35 Pulse Oximetry 99 05/16/22 14:35 Oxygen Delivery Method 05/16/22 14:35 Course <Marina Rosas PA-C - Last Filed: 05/16/22 18:35> Vital Signs Vital signs: Vital Signs - 8 hr 05/16/22 14:35 Temperature 98.1 F Pulse Rate 57 L Respiratory Rate 14 Blood Pressure 140/68 Pulse Oximetry 99 Oxygen Delivery Method Room Air <Jodi Messer DO - Last Filed: 05/17/22 17:50> Vital Signs Vital signs: Vital Signs - 8 hr 05/16/22 14:35 Temperature 98.1 F Pulse Rate 57 L Respiratory Rate 14 Blood Pressure 140/68 Pulse Oximetry 99 Oxygen Delivery Method Room Air Discharge Plan Departure Patient Disposition: Home Clinical Impression: Patient left before evaluation by physician Prescriptions: No Action ondansetron 4 mg tablet,disintegrating 4 mg PO Q6H PRN (Reason: nausea and vomiting) Qty: 14 0RF cyclobenzaprine 10 mg tablet 10 mg PO TID PRN (Reason: muscle spasm) Qty: 14 0RF lidocaine [Lidoderm] 5 % adhesive patch,medicated 1 patch topical DAILY PRN (Reason: pain) Qty: 15 0RF Rx Instructions: leave on most painful area for up to 12 hrs diclofenac sodium [Voltaren Arthritis Pain] 1 % gel 4 g topical QID PRN (Reason: pain, inflammation) Qty: 100 0RF Rx Instructions: apply to single knee, ankle, foot; for foot includes sole/toes/top of foot acetaminophen [Tylenol Arthritis Pain] 650 mg tablet extended release 650 mg PO Q8H PRN (Reason: pain) Qty: 30 0RF Referrals: Miscellaneous,Doctor, MD [Primary Care Provider] - <Jodi Messer DO - Last Filed: 05/17/22 17:50> Cosign ED Attending Cosignature Attestation: [facility]
--- NOTE | 2022-05-16 17:40 | PC.NURSE ---
Pt states kolton been here for 3.5 hrs and all i need is a doctors note to go back to work and now this crying baby is making me have a migraine and im out of here no papers signed. pt ambulated out of ED with steady gait.
== END 2022-05-16 17:42 | disposition left against medical advice (07) ==
PROVIDERS: Emergency Provider Physician Assistant Medical
DX: M54.50 Low back pain, unspecified (principal)
CPT/HCPCS: 99281

== ENCOUNTER 2022-11-28 20:03 | Emergency (ER) | payer OTHER, SELFPAY ==
[2022-11-28 20:10] VITALS: BP 140/81; PULSE 67; RESP 15; TEMP 36.3; O2SAT 99; BMI 29.7
--- NOTE | 2022-11-28 20:16 | DI.RAD.S_ITS ---
PROCEDURE: XR FOOT LT MIN 3V INDICATIONS: foot pain TECHNIQUE: 3 views of the foot were acquired. COMPARISON: [facility], CR, XR FOOT RT MIN 3V, 08/02/2021, 17:35. FINDINGS: Bones: No fractures or dislocations. No suspicious bony lesions. Soft tissues: No tibiotalar joint effusion. Achilles tendon appears normal. IMPRESSION: 1. No fracture or dislocation. Dictated by: Govind Arevalo M.D. on 11/28/2022 at 21:04 Approved by: Govind Arevalo M.D. on 11/28/2022 at 21:15
--- NOTE | 2022-11-29 | PC.NURSE ---
pt c/o pain in the arch of his left foot with pain increasing with walking
--- NOTE | 2022-11-29 00:08 | ED.LOWEXIN ---
HPI - Extremity Injury (Lower) General Chief Complaint: Extremity Injury, Lower Stated Complaint: L foot pain Time Seen by Provider: 11/29/22 00:07 Source: patient Mode of arrival: Ambulatory History of Present Illness HPI Narrative: 47-year-old gentleman with a history of multiple orthopedic issues as well as chronic migraine. Has a history of substance use in the past and actively avoids any pain medications or alcohol. He does use marijuana to help with overall pain and uses ibuprofen regularly. He notes that over the past 1 month he has been having increasing tenderness over the sole of the left foot and complains that there is rock under the arch of his foot. Comes in for further evaluation. He is state able to walk, he is noticed no trauma no puncture wounds, no redness warmth or other signs of infection. Related Data Previous Rx's Medication Instructions Recorded ondansetron 4 mg disintegrating 4 mg PO Q6H PRN nausea and 03/13/21 tablet vomiting #14 tabs cyclobenzaprine 10 mg tablet 10 mg PO TID PRN muscle spasm #14 04/22/21 tabs acetaminophen 650 mg 650 mg PO Q8H PRN pain #30 tabs 08/02/21 tablet,extended release (Tylenol Arthritis Pain) diclofenac sodium 1 % topical gel 4 g topical QID PRN pain, 08/02/21 (Voltaren Arthritis Pain) inflammation #100 grams lidocaine 5 % topical patch 1 patch topical DAILY PRN pain #15 08/02/21 (Lidoderm) ea Allergies Allergy/AdvReac Type Severity Reaction Status Date / Time No Known Drug Allergies Allergy Verified 11/28/22 20:16 Review of Systems Review of Systems Narrative: Pertinent positive and negative findings as per HPI Patient History Medical History Patient denies medical problems Social History Smoking Status: Current every day smoker Smoking Status: Current every day smoker tobacco type: cigarettes and vaping alcohol intake frequency: holidays/special occasions only Substance Use Type: marijuana Exam Initial Vital Signs Initial Vital Signs: Vital Signs Temperature 97.4 F L 11/28/22 20:10 Pulse Rate 67 11/28/22 20:10 Respiratory Rate 15 11/28/22 20:10 Blood Pressure 140/81 11/28/22 20:10 Pulse Oximetry 99 11/28/22 20:10 Oxygen Delivery Method Room Air 11/28/22 20:10 General: Alert appropriate in no acute distress Respiratory: Able to speak in full sentences, no obvious respiratory distress Skin: No obvious rashes, warm and dry Neurologic: Grossly intact no obvious asymmetries or abnormalities Psych: appropriate insight and affect, cooperative Extremity: Left foot has a mobile palpable nodule that plantar surface mid forefoot that does feel like it is a Mead's neuroma, does not feel like an abscess. It is not bony. There is no evidence of fracture and no suggestion of gout. Course Orders Ordered: ED Orders 11/28/22 20:16 XR foot LT min 3V Stat Vital Signs Vital signs: Vital Signs - 8 hr 11/28/22 20:10 Temperature 97.4 F L Pulse Rate 67 Respiratory Rate 15 Blood Pressure 140/81 Pulse Oximetry 99 Oxygen Delivery Method Room Air MDM - Extremity Injury (Lower) MDM Narrative Medical decision making narrative: CC: Foot pain left side, acute uncertain prognosis Complicating co-morbidities: Migraines, multiple orthopedic complaints Data collected from: patient, Differential considered: Fracture, cellulitis, gout, foreign body Exam documented above, pertinent findings include: Small mobile mass in the soft tissue of the forefoot on the plantar surface Imaging studies: X-ray of the foot does not show any acute findings Discussion: 47-year-old gentleman with 1 month of increasing left foot pain physical exam most consistent with a Mead's neuroma. No evidence of fracture foreign body gout or infection. He is referred to Podiatry and declines any additional pain medications at this time. 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 On exam, it does feel like you in fact do have a Mead's neuroma. I am not seeing any evidence of fractures, bone tumor, gout or infection At this time, you are doing all appropriate management. Using ibuprofen Tylenol as needed. Finding whatever shoe is going to be most comfortable for you typically a hard sole shoe with padding around the neuroma itself tends to be the most comfortable. I am going to suggest that you follow-up with [facility] pod[facility]. You can contact [phone] and let them know that you are in the emergency department, the ER doctor is concerned that you have a Mead's neuroma and you would like a consultation with child care centre director. If you find that you are getting worse or develop any new symptoms, please feel free to return to the emergency department for further evaluation. Prescriptions: No Action ondansetron 4 mg tablet,disintegrating 4 mg PO Q6H PRN (Reason: nausea and vomiting) Qty: 14 0RF cyclobenzaprine 10 mg tablet 10 mg PO TID PRN (Reason: muscle spasm) Qty: 14 0RF lidocaine [Lidoderm] 5 % adhesive patch,medicated 1 patch topical DAILY PRN (Reason: pain) Qty: 15 0RF Rx Instructions: leave on most painful area for up to 12 hrs diclofenac sodium [Voltaren Arthritis Pain] 1 % gel 4 g topical QID PRN (Reason: pain, inflammation) Qty: 100 0RF Rx Instructions: apply to single knee, ankle, foot; for foot includes sole/toes/top of foot acetaminophen [Tylenol Arthritis Pain] 650 mg tablet extended release 650 mg PO Q8H PRN (Reason: pain) Qty: 30 0RF Referrals: Miscellaneous,Doctor, MD [Primary Care Provider] - Stand Alone Forms: Patient Portal/API, Work Release Note
== END 2022-11-29 00:34 | disposition home or self-care (01) ==
PROVIDERS: Emergency Provider Emergency Medicine
DX: G57.62 Lesion of plantar nerve, left lower limb (principal)
CPT/HCPCS: 73630; 99281; 99283

== ENCOUNTER 2023-07-06 11:17 | Day surgery (SDC) | payer OTHER, SELFPAY ==
--- NOTE | 2023-07-06 | PATH_ITS ---
[facility] Accession Number: [id number] No. of containers..03 Tissue . 01 Material submitted: . PART A: colon - CECUM POLYP X2 PART B: colon - ASCENDING COLON POLYP PART C: colon - TRANSVERSE POLYP . 01 Diagnosis: A. CECUM, POLYP X2: Tubular adenomas. . B. ASCENDING COLON, POLYP: Tubulovillous adenoma. No evidence of malignancy or high-grade dysplasia. . C. TRANSVERSE COLON, POLYP: Tubular adenoma. MR 07/08/2023 1441 Local . 01 Electronically signed: . Evon Lind MD, Pathologist NPI- [id number] . 01 Gross description: . Part A: CECUM POLYP X2: Received in formalin are 3 fragment(s) of wise, soft tissue measuring 0.3 x 0.2 x 0.2 cm to 0.5 x 0.5 x 0.4 cm submitted entirely in 1 cassette(s) Part B: ASCENDING COLON POLYP: Received in formalin are multiple fragment of wise soft tissue measuring 2.0 x 1.5 x 0.7 cm in aggregate. Specimen is sectioned and submitted in its entirety in 4 cassettes. Part C: TRANSVERSE POLYP: Received in formalin is 1 fragment of wise soft tissue measuring 0.7 x 0.7 x 1.0 cm. Specimen is sectioned and submitted in its entirety in 1 cassette. /MARIBEL 07/07/20232 Local . 01 Pathologist provided ICD-10: D12.0, D12.2, D12.3 . 01 CPT . 278758, 571120, [id number] Specimen Comment: A courtesy copy of this report has been sent to [phone] Performed at: [address] [place] [address] Cytology [address], [place], [place] [id number] MD Govind Bobo MD Phone: [phone]
--- NOTE | 2023-07-06 11:31 | P.HP_ITS ---
History of Present Illness History of Present Illness Date Patient Seen: 07/06/23 Time Patient Seen: 11:32 Chief complaint: Screening Colonoscopy Narrative: 48-year-old male here for asymptomatic colon cancer screening. No family history of colon cancer. COUNT INCLUDES [facility] Medical History Patient denies medical problems Social History Smoking Status: Current every day smoker Meds Home Medications and Allergies Home Medications Medication Instructions Recorded Confirmed Type ondansetron 4 mg disintegrating 4 mg PO Q6H PRN nausea and 03/13/21 Rx tablet vomiting #14 tabs cyclobenzaprine 10 mg tablet 10 mg PO TID PRN muscle spasm #14 04/22/21 Rx tabs acetaminophen 650 mg 650 mg PO Q8H PRN pain #30 tabs 08/02/21 Rx tablet,extended release (Tylenol Arthritis Pain) diclofenac sodium 1 % topical gel 4 g topical QID PRN pain, 08/02/21 Rx (Voltaren Arthritis Pain) inflammation #100 grams lidocaine 5 % topical patch 1 patch topical DAILY PRN pain #15 08/02/21 Rx (Lidoderm) ea Allergies Allergy/AdvReac Type Severity Reaction Status Date / Time No Known Drug Allergies Allergy Verified 11/28/22 20:16 Review of Systems Review of Systems ROS: Yes All systems reviewed with the patient and are negative except as otherwise documented Exam Const General: cooperative HENMT Head: normal to inspection Eyes General: appearance normal, both eyes and all related structures Neck Neck: normal visual inspection Chest Chest: normal inspection of the chest Resp Effort & Inspection: normal respiratory effort Cardio Rate: regular rate GI Inspection: normal to inspection Skin General: no rashes or lesions noted Neuro General: patient alert and patient awake Extrem General: normal to inspection and no pedal edema Psych Appearance: grossly normal Assessment & Plan Assessment & Plan narrative: 48-year-old male indicated for colon cancer screening. Colonoscopy is pursued today.
--- NOTE | 2023-07-06 11:33 | PM.PREOP ---
Pre-operative Note Interval Note History & Physical reviewed/Exam performed by Physician: Yes Changes to H&P: No ASA Class (for procedural sedation): II
[2023-07-06] MEDS: LACTATED RINGERS 1,000 ML 42 ML IV (11:35)
[2023-07-06 11:41] VITALS: BP 127/73; PULSE 63; RESP 16; TEMP 36.2; O2SAT 99
--- NOTE | 2023-07-06 13:21 | PM.OP.COLON ---
Operative Date/Time/Diagnoses Date of procedure: 07/06/23 Time of procedure: 13:21 Pre-op diagnosis: Colon cancer screening Post-op diagnosis: same Procedure & Clinicians Study performed: Colonoscopy with hot snare polypectomy, Endoclip deployment, submucosal tattoo placement. Same procedure as scheduled: Yes Indications: Colon cancer screening Surgeon: Carlos Howe Procedure Notes SCOAP/Timeout: Done Procedure in detail: After the risks and benefits were explained, written and verbal informed consent was obtained. The patient was brought into the procedure room and placed into the left lateral decubitus position. Please see anesthesia notes for sedation details. Digital rectal examination was accomplished. The scope was introduced into the patient and advanced under direct visualization to the cecum as identified by the appendiceal orifice and ileocecal valve. The scope was slowly withdrawn to carefully examine the mucosa for any defects or lesions. Comprehensive imaging was accomplished throughout the rectum including the dentate line. The colon was decompressed, the scope was then removed from the patient who tolerated the procedure well. Procedure time was prolonged secondary to the number and complexity of colon polyps. Twenty-two modifier was thus requested. Pediatric colonoscope Bowel prep adequate Scope withdrawal time: 42 minutes Sedation minutes: 50 Complications: none Impression: There was a pedunculated 15 mm polyp in the transverse colon removed with hot snare. This was removed intact with a Melara net. There was a 2nd smaller polyp in the transverse colon that was also removed with hot snare but this was lost in the transverse after it was completely removed. In the cecum there were two 7-8 mm sessile polyps removed with hot snare. In the ascending colon there was a large irregular polyp on a fold that was spread out over approximately 18 mm. This was excised by way of piecemeal hot snare polypectomy. After our efforts, all of this polyp appeared to have been excised. Three Endoclips were used to close the polypectomy defect. Because this polyp looked quite irregular in appearance, a 1 mL Nancy ink tattoo was placed just distal to this polypectomy site. The site was perhaps about 4-5 cm downstream from the ileocecal valve. Part of this polyp was suctioned and aspirated through the endoscope. Other parts of it were removed by suction and Melara net technique per anus. No gross pathology identified distally although this was not as comprehensive and exam as the right colon secondary to the prolonged nature of this case. Endoscopic diagnosis Multiple colon polyps Post-procedure Plan for aftercare: 1. Await histology. 2. If all histology is benign, repeat colonoscopy will be suggested for within the next 6 months to confirm successful and complete removal of this ascending colon polyp removed by piecemeal technique today. Disposition: PACU
[2023-07-06 13:24] VITALS: BP 121/92; PULSE 44; RESP 14; TEMP 36.4; O2SAT 100
[2023-07-06 13:28] VITALS: BP 127/67; PULSE 44; RESP 16; O2SAT 100
[2023-07-06 13:33] VITALS: BP 121/69; PULSE 44; RESP 15; O2SAT 100
[2023-07-06 13:40] VITALS: BP 132/91; PULSE 51; RESP 16; TEMP 36.4; O2SAT 100
== END 2023-07-06 14:02 | disposition home or self-care (01) ==
PROVIDERS: Referring Provider Internal Medicine Gastroenterology; Visit Provider Internal Medicine Gastroenterology
PROC: 0DJD8ZZ Inspection of Lower Intestinal Tract, Via Natural or Artificial Opening Endoscopic (ICD-10-PCS; CPT 45378; principal; 2023-07-06 12:30)
DX: Z12.11 Encounter for screening for malignant neoplasm of colon (principal); D12.0 Benign neoplasm of cecum; D12.2 Benign neoplasm of ascending colon; D12.3 Benign neoplasm of transverse colon
CPT/HCPCS: 45381; 45385; J2704

== ENCOUNTER 2023-08-29 08:44 | Emergency (ER) | payer OTHER, SELFPAY ==
[2023-08-29 09:05] VITALS: BP 137/80; PULSE 67; RESP 12; TEMP 36.8; O2SAT 100; BMI 27.8
--- NOTE | 2023-08-29 09:07 | DI.RAD.S_ITS ---
PROCEDURE: XR SHOULDER RT MIN 2V INDICATIONS: Pain after probable subluxation TECHNIQUE: 3 views of the shoulder were acquired. COMPARISON: None. FINDINGS: Bones: No fractures or dislocations. No suspicious bony lesions. Visualized ribs appear intact. Soft tissues: No suspicious soft tissue calcifications. IMPRESSION: Normal alignment of the glenohumeral joint without fracture identified. Dictated by: Terrell Rivera M.D. on 08/29/2023 at 8:49 Approved by: Terrell Rivera M.D. on 08/29/2023 at 8:49
--- NOTE | 2023-08-29 09:07 | ED.GENADULT ---
HPI - General Adult General Chief complaint: Extremity Injury, Upper Stated complaint: Right Shoulder Pain Time Seen by Provider: 08/29/23 09:03 Source: patient Mode of arrival: Ambulatory Limitations: no limitations History of Present Illness HPI narrative: 48-year-old here for evaluation of right shoulder pain patient states that earlier today the patient was trying to get some materials off a shelf when the patient states that the right shoulder subluxed. Patient states that in the past they have been able to do this very frequently but normally does not have any discomfort associated with it. Patient states that they are unsure whether or not the shoulder completely reduced. Has had pain from the elbow to the neck on the right side. Difficulty with moving. Related Data Home Medications Medication Instructions Recorded Confirmed estradiol 0.1 mg/24 hr weekly 1 patch transdermal WEEKLY 07/06/23 07/06/23 transdermal patch Previous Rx's Medication Instructions Recorded acetaminophen 650 mg 650 mg PO Q8H PRN pain #30 tabs 08/02/21 tablet,extended release (Tylenol Arthritis Pain) cyclobenzaprine 10 mg tablet 10 mg PO TID PRN muscle spasm #10 08/29/23 tabs tramadol 50 mg tablet 50 mg PO TID PRN pain #10 tabs 08/29/23 Allergies Allergy/AdvReac Type Severity Reaction Status Date / Time No Known Drug Allergies Allergy Verified 08/29/23 09:28 Review of Systems Musculoskeletal Musculoskeletal: Reports system reviewed and no additional complaints, except as documented Integumentary/Breasts Skin/Breast: Reports system reviewed and no additional complaints, except as documented Neurologic Neurologic: Reports system reviewed and no additional complaints, except as documented Patient History Medical History Patient denies medical problems Social History Smoking Status: Former smoker alcohol intake: current Smoking Status: Former smoker tobacco type: cigarettes and vaping alcohol intake frequency: a few times a week Substance Use Type: marijuana Exam Initial Vital Signs Initial Vital Signs: Vital Signs Temperature 98.2 F 08/29/23 09:05 Pulse Rate 67 08/29/23 09:05 Respiratory Rate 12 08/29/23 09:05 Blood Pressure 137/80 08/29/23 09:05 Pulse Oximetry 100 08/29/23 09:05 Oxygen Delivery Method Room Air 08/29/23 09:05 Cardio Pulses: radial pulses present on the right Skin General: no rashes or lesions noted Neuro Other: Sensory intact lateral aspect right shoulder Extrem Other: Fullness to the right trapezius muscle. Tenderness to palpation throughout the right shoulder. By palpating it does not appear to be dislocated. Right elbow is unremarkable. Course Orders Ordered: ED Orders 08/29/23 09:07 XR shoulder RT min 2V Stat Discontinued Medications Hydromorphone HCl (Hydromorphone 1 Mg Inj) 1 mg IM NOW ONE Stop: 08/29/23 09:08 Last Admin: 08/29/23 09:49 Dose: 1 mg Documented By: MARCI Vital Signs Vital signs: Vital Signs - 8 hr 08/29/23 09:05 Temperature 98.2 F Pulse Rate 67 Respiratory Rate 12 Blood Pressure 137/80 Pulse Oximetry 100 Oxygen Delivery Method Room Air Medical Decision Making Imaging Data Extremity x-ray #1: Radiologist's Impression: PROCEDURE: XR SHOULDER RT MIN 2V INDICATIONS: Pain after probable subluxation TECHNIQUE: 3 views of the shoulder were acquired. COMPARISON: None. FINDINGS: Bones: No fractures or dislocations. No suspicious bony lesions. Visualized ribs appear intact. Soft tissues: No suspicious soft tissue calcifications. IMPRESSION: Normal alignment of the glenohumeral joint without fracture identified. MDM Narrative Medical decision making narrative: X-ray showed no signs of fracture nor dislocation nor subluxation. Patient is neurovascularly intact. Discussed this with the patient. Will provide symptom treatment for now. Discussed return precautions and follow-up instructions. Patient expressed understanding and agreement. Discharge Plan Departure Patient Disposition: Home Clinical Impression: Right shoulder pain Instructions: How To Perform RICE (Rest, Ice, Compress, Elevate), DI for Shoulder Pain Activity Restrictions/Additional Instructions: I do recommend that you contact your primary doctor for follow-up as you would most likely benefit from a referral to see Physical therapy. Use the medications as needed and as directed. Return to the emergency department for new symptoms. Prescriptions: New cyclobenzaprine 10 mg tablet 10 mg PO TID PRN (Reason: muscle spasm) Qty: 10 0RF tramadol 50 mg tablet 50 mg PO TID PRN (Reason: pain) Qty: 10 0RF No Action estradiol 0.1 mg/24 hr patch weekly 1 patch transdermal WEEKLY acetaminophen [Tylenol Arthritis Pain] 650 mg tablet extended release 650 mg PO Q8H PRN (Reason: pain) Qty: 30 0RF Stand Alone Forms: Patient Portal/API
[2023-08-29] MEDS: HYDROMORPHONE 1 MG INJ IM (09:49)
[2023-08-29 10:09] VITALS: BP 137/82; PULSE 59; RESP 16; TEMP 36.6; O2SAT 99
--- NOTE | 2023-08-29 10:09 | PC.NURSE ---
right chronic shoulder pain. pt states diluadid helps with pain.
== END 2023-08-29 10:10 | disposition home or self-care (01) ==
PROVIDERS: Emergency Provider Emergency Medicine
DX: M25.511 Pain in right shoulder (principal)
CPT/HCPCS: 73030; 96372; 99283; J1170

== ENCOUNTER 2023-09-06 10:36 | Emergency (ER) | payer OTHER, SELFPAY ==
[2023-09-06 10:57] VITALS: BP 130/72; PULSE 64; RESP 16; TEMP 36.6; O2SAT 99; BMI 26.4
--- NOTE | 2023-09-06 11:03 | ED_ITS ---
HPI - Extremity Injury (Lower) <Socorro Figueredo PA-C - Last Filed: 09/06/23 12:51> General Chief Complaint: Extremity Injury, Lower Stated Complaint: L knee painful/ T-0 Time Seen by Provider: 09/06/23 11:03 History of Present Illness HPI Narrative: 48-year-old patient presents morning with left knee pain. 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 History is significant for some type of injury at age 13 but patient can not recall and states crutches were not required at that time. Self reports what sounds like a patella subluxation relocation at age 17. No recurrent since then. Pain is in the medial aspect it does not radiate, stating it feels like it is on the inside.? Endorses some medial swelling, but no hot temperature to the skin, no disruption during sleep. Patient did take a tramadol this morning prior to arrival and it did take the edge off. 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 Patient is ?goofy foot? and if patient was to kick a soccer ball it would be with the right foot. All other systems are reviewed and are negative. Related Data Home Medications Medication Instructions Recorded Confirmed estradiol 0.1 mg/24 hr weekly 1 patch transdermal WEEKLY 07/06/23 07/06/23 transdermal patch Previous Rx's Medication Instructions Recorded acetaminophen 650 mg 650 mg PO Q8H PRN pain #30 tabs 08/02/21 tablet,extended release (Tylenol Arthritis Pain) cyclobenzaprine 10 mg tablet 10 mg PO TID PRN muscle spasm #10 08/29/23 tabs tramadol 50 mg tablet 50 mg PO TID PRN pain #10 tabs 08/29/23 Allergies Allergy/AdvReac Type Severity Reaction Status Date / Time No Known Drug Allergies Allergy Verified 08/29/23 09:28 Review of Systems <Socorro Figueredo PA-C - Last Filed: 09/06/23 12:51> Review of Systems Narrative: All other systems reviewed and are negative. Patient History <Socorro Figueredo PA-C - Last Filed: 09/06/23 12:51> Medical History Patient denies medical problems Social History Smoking Status: Current every day smoker alcohol intake: current Smoking Status: Current every day smoker tobacco type: cigarettes alcohol intake frequency: a few times a week Substance Use Type: marijuana Exam <Socorro Figueredo PA-C - Last Filed: 09/06/23 12:51> Initial Vital Signs Initial Vital Signs: Vital Signs Temperature 97.9 F 09/06/23 10:57 Pulse Rate 64 09/06/23 10:57 Respiratory Rate 16 09/06/23 10:57 Blood Pressure 130/72 09/06/23 10:57 Pulse Oximetry 99 09/06/23 10:57 Oxygen Delivery Method Room Air 09/06/23 10:57 Vital signs reviewed and are normal. Const Other: Smiling, seated, no distress, left leg is elevated on a chair. Resp Other: Clear to auscultation throughout. Cardio Other: Regular rate and rhythm, no tachycardia. Skin Other: No breaks in the skin, no discoloration, normal color, turgor, temperature. Extrem Other: Mild medial left knee swelling, with medial joint line tenderness. Lateral blanca int line is without tenderness. Active range of motion is limited due to pain patient is able to flex to about 90? before pain is felt in the medial aspect. No posterior swelling or popliteal findings. Negative anterior and posterior drawer. No issues identified with the lower extremity ankle or foot. Distal neurovascular is grossly intact. Passive range of motion causes pain with heel to buttock forced flexion. Patient has full extension and hyperextension does not cause pain. Valgus stressing causes some discomfort. There is palpable clunking of the patella with flexion, negative apprehension sign. No appreciable laxity compared to the contralateral side. Weightbear causes pain. <Mamta Agee DO - Last Filed: 09/08/23 08:17> Initial Vital Signs Initial Vital Signs: Vital Signs Temperature 97.9 F 09/06/23 10:57 Pulse Rate 64 09/06/23 10:57 Respiratory Rate 16 09/06/23 10:57 Blood Pressure 130/72 09/06/23 10:57 Pulse Oximetry 99 09/06/23 10:57 Oxygen Delivery Method Room Air 09/06/23 10:57 Course <Socorro Figueredo PA-C - Last Filed: 09/06/23 12:51> Orders Ordered: ED Orders 09/06/23 11:01 XR knee LT 3V Stat Vital Signs Vital signs: Vital Signs - 8 hr 09/06/23 10:57 Temperature 97.9 F Pulse Rate 64 Respiratory Rate 16 Blood Pressure 130/72 Pulse Oximetry 99 Oxygen Delivery Method Room Air <Mamta Agee DO - Last Filed: 09/08/23 08:17> Orders Ordered: ED Orders 09/06/23 11:01 XR knee LT 3V Stat Vital Signs Vital signs: Vital Signs - 8 hr 09/06/23 10:57 Temperature 97.9 F Pulse Rate 64 Respiratory Rate 16 Blood Pressure 130/72 Pulse Oximetry 99 Oxygen Delivery Method Room Air MDM - Extremity Injury (Lower) <Socorro Figueredo PA-C - Last Filed: 09/06/23 12:51> Medical Records Attestation: I reviewed the patient's medical records. Imaging Data Extremity x-ray #1: My Impression: No acute findings. Radiologist's Impression: PROCEDURE: XR KNEE LT 3V INDICATIONS: pain TECHNIQUE: 3 views of the knee were acquired. COMPARISON: None. FINDINGS: Bones: No fractures or dislocations. No suspicious bony lesions. Soft tissues: No joint effusion. No suspicious soft tissue calcifications. IMPRESSION: No significant plain film abnormality is seen. If it would be helpful for clinical management decision making, please consider a dedicated, scheduled knee MRI for further evaluation (assuming that there is no contraindication). Dictated by: Ti Mosley M.D. on 09/06/2023 at 10:40 Approved by: Ti Mosley M.D. on 09/06/2023 at 10:[address] [facility] Narrative Medical decision making narrative: Left medial knee pain differential includes meniscal tear, versus patella laxity with history of subluxation relocation. Exam is limited today due to pain, there was no laxity appreciated however but pain in the medial side. No clinical findings to suggest an acute joint infection. X-rays were negative for any effusion or hemarthrosis. No fracture. Dejuan wrap applied and crutches dispensed with training, road tested and safe. Patient had a knee brace but grew out of it, I highly recommend a neoprene knee sleeve with a patellar window for support, this can be obtained it any sporting goods store or large box store such as [employer]. I recommend that you try it on 1st to find the most comfortable fit. We have dispensed crutches and did crutch training and road tested and the patient is safe. Patient will follow-up with their PCP, I recommended anti-inflammatories if able to take them with food, Tylenol for pain, you already have some tramadol at home be careful as this can cause sedation. Please elevate with a pillow to flex the knee slightly and ice directly over the knee about 10-15 minutes at a time. Discharge Plan Departure Patient Disposition: Home Clinical Impression: Acute knee pain Qualifiers: Laterality: left Qualified Code(s): M25.562 - Pain in left knee Instructions: DI for Knee Pain Activity Restrictions/Additional Instructions: I highly recommend a Velcro/neoprene knee sleeve with a patellar window for support, this can be obtained it any sporting goods store or large box store such as [employer]. I recommend that you try it on 1st to find the most comfortable fit. We have dispensed crutches and did crutch training and road tested and the patient is safe. Patient will follow-up with their PCP, I recommended anti-inflammatories if able to take them with food, Tylenol for pain, you already have some tramadol at home be careful as this can cause sedation. Please elevate with a pillow to flex the knee slightly and ice directly over the knee about 10-15 minutes at a time. Please return to the emergency department if your symptoms worsen you develop increased swelling, the skin becomes hot to the touch or your pain travels anywhere else or any other worrisome symptoms. Please excuse for missed work today as well as tomorrow September 07, 2023. Prescriptions: No Action estradiol 0.1 mg/24 hr patch weekly 1 patch transdermal WEEKLY acetaminophen [Tylenol Arthritis Pain] 650 mg tablet extended release 650 mg PO Q8H PRN (Reason: pain) Qty: 30 0RF cyclobenzaprine 10 mg tablet 10 mg PO TID PRN (Reason: muscle spasm) Qty: 10 0RF tramadol 50 mg tablet 50 mg PO TID PRN (Reason: pain) Qty: 10 0RF Referrals: *Temp,ED* [Primary Care Provider] - Stand Alone Forms: Patient Portal/API, Work Release Note ED Sign-out <Mamta Agee DO - Last Filed: 09/08/23 08:17> Cosign ED Attending Cosignature Attestation: I was immediately available in the department for consultation.
[2023-09-06 12:27] VITALS: BP 128/65; PULSE 55; RESP 14; O2SAT 98
== END 2023-09-06 12:29 | disposition home or self-care (01) ==
PROVIDERS: Emergency Provider Physician Assistant Medical
DX: M25.562 Pain in left knee (principal)
CPT/HCPCS: 73562; 99282; 99283

== ENCOUNTER 2023-09-18 10:02 | Emergency (ER) | payer OTHER, SELFPAY ==
[2023-09-18] VITALS (14 sets, daily range): BP systolic 126–161; BP diastolic 61–85; PULSE 46–62; RESP 11–32; TEMP 36.9; O2SAT 96–100; BMI 28.3
--- NOTE | 2023-09-18 10:08 | DI.RAD.S_ITS ---
PROCEDURE: XR CHEST 1V INDICATIONS: chest pain TECHNIQUE: One view of the chest was acquired. COMPARISON: [facility], CR, XR CHEST 1V, 10/31/2021, 7:38. [facility], CR, XR CHEST 1V, 03/13/2021, 16:23. FINDINGS: Surgical changes and devices: None. Lungs and pleura: Low lung volumes. No dense consolidation or pleural effusion Mediastinum: Normal heart size Bones and chest wall: Unremarkable IMPRESSION: Limited single view radiograph with low lung volumes. No acute abnormality Dictated by: Andres Huang M.D. on 09/18/2023 at 10:26 Approved by: Andres Huang M.D. on 09/18/2023 at 10:27
[2023-09-18 10:24] LABS: Add Manual Diff / Slide Review NO; Basophils Absolute Auto 100 /uL (0-100); Basophils Percent Auto 1.4 % (0-2); Eosinophils Absolute Auto 0 /uL (0-450); Eosinophils Percent Auto 0.4 % (2-4); Hemoglobin 13.4 g/dL (13.5-17.5); Lymphocytes Absolute Auto 1800 /uL (1100-4500); Lymphocytes Percent Auto 19.5 % (25-40); Mean Corpuscular HGB Conc 33.5 % (30-36); Mean Corpuscular Hemoglobin 30.9 PG (26-34); Mean Corpuscular Volume 92.4 fL (80-100); Monocytes Absolute Auto 700 /uL (0-900); Monocytes Percent Auto 7.9 % (3-14); Neutrophils Absolute Auto 6600 /uL (1500-7000); Neutrophils Percent Auto 70.8 % (50-75); Platelet Count 280 X10^3/uL (150-400); Red Blood Cell Count 4.33 X10^6/uL (4.5-5.9); Red Cell Distribution Width 13.2 % (11.6-14.8); White Blood Cell Count 9.4 X10^3/uL (4.5-11.0)
--- NOTE | 2023-09-18 10:26 | ED_ITS ---
HPI - Chest Pain General Chief Complaint: Chest Pain Stated Complaint: Might be having a mild heart attack Time Seen by Provider: 09/18/23 10:04 Source: patient Mode of arrival: Ambulatory Limitations: no limitations History of Present Illness HPI narrative: 48-year-old MTF transgender patient presents for evaluation of left-sided chest pain since early this afternoon. 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 The pain persisted and they became concerned that the pain was cardiac in nature. Pain is constant, aching, does not radiate. Movement of the left arm makes it worse. No medications taken prior to arrival. Related Data Home Medications Medication Instructions Recorded Confirmed estradiol 0.1 mg/24 hr weekly 1 patch transdermal WEEKLY 07/06/23 07/06/23 transdermal patch Previous Rx's Medication Instructions Recorded acetaminophen 650 mg 650 mg PO Q8H PRN pain #30 tabs 08/02/21 tablet,extended release (Tylenol Arthritis Pain) cyclobenzaprine 10 mg tablet 10 mg PO TID PRN muscle spasm #10 08/29/23 tabs tramadol 50 mg tablet 50 mg PO TID PRN pain #10 tabs 08/29/23 Allergies Allergy/AdvReac Type Severity Reaction Status Date / Time No Known Drug Allergies Allergy Verified 09/18/23 10:09 Review of Systems Review of Systems Narrative: see HPI Patient History Medical History Patient denies medical problems Social History Smoking Status: Current every day smoker alcohol intake: current Smoking Status: Current every day smoker tobacco type: cigarettes alcohol intake frequency: a few times a week Substance Use Type: marijuana Exam Initial Vital Signs Initial Vital Signs: Vital Signs Temperature 98.5 F 09/18/23 10:04 Pulse Rate 62 09/18/23 10:04 Respiratory Rate 14 09/18/23 10:04 Blood Pressure 145/67 H 09/18/23 10:04 Pulse Oximetry 96 09/18/23 10:04 Oxygen Delivery Method Room Air 09/18/23 10:04 Const: Awake, alert, no acute distress, nontoxic appearing Cardiac: regular rate, regular rhythm RESP: unlabored, clear bilaterally, no wheezing GI: Soft, nontender, nondistended, no rebound, no guarding MSK: Atraumatic, full range of motion, pulses equal Skin: Warm, Dry, intact, no rashes Neuro: AO x3, CN II-XII grossly intact, moves all extremities Course Orders Ordered: Discontinued Medications Aspirin (Aspirin 81 Mg Chew Tab) 324 mg PO NOW ONE Stop: 09/18/23 10:09 Last Admin: 09/18/23 10:32 Dose: 324 mg Documented By: MAGGIE Morphine Sulfate (Morphine 4 Mg/Ml Inj) 4 mg IV NOW ONE Stop: 09/18/23 10:33 Last Admin: 09/18/23 10:41 Dose: 4 mg Documented By: LYDIA Vital Signs Vital signs: Vital Signs - 8 hr 09/18/23 11:00 09/18/23 11:00 09/18/23 11:30 Pulse Rate 53 L 53 L Respiratory Rate 26 H 11 L Blood Pressure 148/79 H Pulse Oximetry 97 97 09/18/23 11:31 09/18/23 11:31 09/18/23 12:00 Pulse Rate 51 L 52 L Respiratory Rate 20 24 Blood Pressure 126/67 Pulse Oximetry 97 99 09/18/23 12:01 09/18/23 12:01 09/18/23 12:17 Pulse Rate 52 L Respiratory Rate 24 Blood Pressure 161/85 H 129/64 Pulse Oximetry 99 09/18/23 12:17 09/18/23 12:30 09/18/23 13:00 Pulse Rate 46 L 48 L 54 L Respiratory Rate 25 H 18 32 H Blood Pressure Pulse Oximetry 100 100 99 09/18/23 13:16 09/18/23 13:16 Pulse Rate 52 L Respiratory Rate Blood Pressure 135/73 Pulse Oximetry 99 MDM - Chest Pain Lab Data 09/18/23 10:12 09/18/23 10:12 Labs: Lab Results 09/18/23 09/18/23 Range/Units 10:12 12:15 WBC 9.4 (4.5-11.0) X10^3/uL RBC 4.33 L (4.5-5.9) X10^6/uL Hgb 13.4 L (13.5-17.5) g/dL Hct 40.0 L (41-53) % MCV 92.4 (80-100) fL MCH 30.9 (26-34) PG MCHC 33.5 (30-36) % RDW 13.2 (11.6-14.8) % Plt Count 280 (150-400) X10^3/uL Neut % (Auto) 70.8 (50-75) % Lymph % (Auto) 19.5 L (25-40) % [place] % (Auto) 7.9 (3-14) % Eos % (Auto) 0.4 L (2-4) % Baso % (Auto) 1.4 (0-2) % Neut # (Auto) 6600 (8274-2538) /uL Lymph # (Auto) 1800 (0436-1876) /uL [place] # (Auto) 700 (0-900) /uL Eos # (Auto) 0 (0-450) /uL Baso # (Auto) 100 (0-100) /uL PT 11.4 (9.4-12.5) SECONDS INR 1.0 (0.9-1.3) APTT 31 (25.1-36.5) SECONDS Sodium 136 L (137-145) mmol/L Potassium 4.0 (3.4-5.1) mmol/L Chloride 104 (98-107) mmol/L Carbon Dioxide 29 (22-32) mmol/L BUN 16 (9-20) mg/dL Creatinine 0.80 (0.66-1.25) mg/dL Estimated GFR > 60 (>60) mL/min BUN/Creatinine Ratio 20.0 (6-22) Glucose 107 H (70-100) mg/dL Calcium 9.4 (8.4-10.2) mg/dL Magnesium 1.7 (1.6-2.3) mg/dL Total Bilirubin 0.4 (0.2-1.3) mg/dL AST 23 (17-59) IU/L ALT 19 (<50) IU/L Alkaline Phosphatase 54 (38-126) U/L Total Creatine Kinase 81 (55-170) U/L Troponin I < 0.012 < 0.012 (0.01-0.034) ng/mL Total Protein 7.9 (6.3-8.2) g/dL Albumin 4.8 (3.5-5.0) g/dL Globulin 3.1 (1.7-4.1) g/dL Albumin/Globulin Ratio 1.5 (1.0-2.8) Lipase 59 (23-300) U/L ECG Data Interpretation: Normal sinus rhythm, normal NH, no ST T wave changes MDM Narrative Medical decision making narrative: Well-appearing patient with left-sided chest pain after lifting arm overhead. Pain is reproducible over the left chest wall. EKG reassuring, no ischemic findings. Patient does take hormones as they state they are transitioning from male to female, however patient has no respiratory symptoms, pain is reproducible, inconsistent with embolic type of pain. Laboratory work is reviewed, troponins undetectable x2, no leukocytosis, hemoglobin 13, normal electrolytes. Chest x-ray negative for acute findings. Patient given pain medications with resolution of symptoms and no recurrence. Patient counseled on results of labs and imaging, they state they are relieved to know that they are ?not having a heart attack? and are eager to be discharged home. Recommended Tylenol and ibuprofen as needed for pain at home. Discharge Plan Departure Patient Disposition: Home Clinical Impression: Chest pain Instructions: DI for Chest Pain Activity Restrictions/Additional Instructions: Your laboratory work, chest x-ray, and EKG were normal here today. I do not know the cause of your chest pain but it was not appear that you were having a heart attack at this time. I recommend following up with your primary care physician and Cardiology, especially if you continue to experience symptoms. Continue all of your other medications as normal. Prescriptions: No Action estradiol 0.1 mg/24 hr patch weekly 1 patch transdermal WEEKLY acetaminophen [Tylenol Arthritis Pain] 650 mg tablet extended release 650 mg PO Q8H PRN (Reason: pain) Qty: 30 0RF cyclobenzaprine 10 mg tablet 10 mg PO TID PRN (Reason: muscle spasm) Qty: 10 0RF tramadol 50 mg tablet 50 mg PO TID PRN (Reason: pain) Qty: 10 0RF Referrals: *Temp,ED* [Non-Staff] - Radha Quesada DO [Physician] - Stand Alone Forms: Patient Portal/API
[2023-09-18 10:28] LABS: Prothrombin Time 11.4 SECONDS (9.4-12.5)
[2023-09-18 10:31] LABS: PTT Partial Thromboplastin Tim 31 SECONDS (25.1-36.5)
[2023-09-18] MEDS: ASPIRIN 81 MG CHEW TAB 324 MG PO (10:32)
[2023-09-18 10:35] LABS: Alanine Aminotransferase 19 IU/L (<50); Albumin 4.8 g/dL (3.5-5.0); Albumin Globulin Ratio 1.5 (1.0-2.8); Alkaline Phosphatase 54 U/L (38-126); Aspartate Aminotransferase 23 IU/L (17-59); Bilirubin Total 0.4 mg/dL (0.2-1.3); Blood Urea Nitrogen 16 mg/dL (9-20); Calcium 9.4 mg/dL (8.4-10.2); Carbon Dioxide 29 mmol/L (22-32); Chloride 104 mmol/L (98-107); Creatine Kinase 81 U/L (55-170); Estimated Glomerular Filt Rate > 60 mL/min (>60); Globulin 3.1 g/dL (1.7-4.1); Glucose 107 mg/dL (70-100); HEMOLYSIS < 15 (0-50); Lipase 59 U/L (23-300); Magnesium 1.7 mg/dL (1.6-2.3); Sodium 136 mmol/L (137-145); Total Protein 7.9 g/dL (6.3-8.2)
[2023-09-18] MEDS: MORPHINE 4 MG/ML INJ IV (10:41)
[2023-09-18 10:46] LABS: Troponin I < 0.012 ng/mL (0.01-0.034)
--- NOTE | 2023-09-18 11:02 | PC.NURSE ---
Son at bedside and states that pt has become increasinly confused and agitated. Family has been working on dx of alzheimers/dementia but have not received one through pcp. Son is concerned about pt returning home because her care is requiring more than is able to provide.
[2023-09-18 12:59] LABS: Troponin I < 0.012 ng/mL (0.01-0.034)
== END 2023-09-18 13:17 | disposition home or self-care (01) ==
PROVIDERS: Emergency Provider Emergency Medicine; Referring Provider Emergency Medicine
DX: R07.9 Chest pain, unspecified (principal)
CPT/HCPCS: 36415; 71045; 80053; 82550; 83690; 83735; 84484; 85025; 85610; 85730; 93005; 93010; 96374; 99284; J2270